=== PATIENT | male | born 1945 | race Hispanic/Latino ===

== ENCOUNTER 2017-05-09 16:07 | Inpatient (IN) | payer MEDICARE, MEDICAID ==
[2017-05-09 16:08] VITALS: BMI 25.0
[2017-05-09 17:02] VITALS: RESP 20
[2017-05-09 17:23] LABS: BASO % 0.6 % (0.0-2.0); EOS # 0.1 K/uL (0.0-0.7); EOS % 1.7 % (0.0-4.0); HEMOGLOBIN 13.3 g/dL (12.0-18.0); LYMPH # 1.4 K/uL (1.0-4.3); LYMPH % 25.7 % (20.0-40.0); MEAN CELL VOLUME 91.9 fL (80.0-94.0); MEAN CORPUSCULAR HEMOGLOBIN 31.9 pg (27.0-31.0); MEAN CORPUSCULAR HGB CONC 34.7 g/dL (33.0-37.0); MEAN PLATELET VOLUME 7.5 fL (7.2-11.7); MONO # 0.5 K/uL (0.0-0.8); MONO % 9.4 % (0.0-10.0); NEUT # 3.4 K/uL (1.8-7.0); NEUT % 62.6 % (50.0-75.0); NRBC % 0.1 % (0.0-2.0); RBC 4.19 Mil/uL (4.40-5.90); RED CELL DISTRIBUTION WIDTH 15.3 % (11.5-14.5); WHITE BLOOD COUNT 5.4 K/uL (4.8-10.8)
[2017-05-09 17:38] LABS: PROTHROMBIN TIME 11.2 SECONDS (9.7-12.2)
[2017-05-09 17:45] LABS: ALB/GLOB RATIO 1.2 (1.0-2.1); ALT/SGPT 13 U/L (21-72); AST/SGOT 21 U/L (17-59); BLOOD UREA NITROGEN 16 mg/dL (9-20); CALCIUM 8.8 mg/dl (8.6-10.4); GFR AFRICAN-AMERICAN > 60; GFR NON-AFRICAN AMERICAN > 60
[2017-05-09] MEDS ORDERED: Enoxaparin 100 mg Syringe SC STA (21:19)
--- NOTE | 2017-05-09 21:24 | C.PDOC ---
History Of Present Illness Pt was diagnosed with RLE DVT by his PMD today and sent to the ED for admission. Time Seen by Provider: 05/09/17 16:31 Chief Complaint (Nursing): Lower Extremity Problem/Injury History Per: Patient, Other (Note from PMD) Onset/Duration Of Symptoms: Days Current Symptoms Are (Timing): Worse Severity: Moderate Associated Symptoms: Leg/Calf Pain (right), Ankle/Leg Swelling (right) Reports Recently: Treated By A Physician Additional History Per: Prior Records Past Medical History Reviewed: Historical Data, Nursing Documentation, Vital Signs Vital Signs: Last Vital Signs Temp 97.9 F 05/09/17 16:50 Pulse 81 05/09/17 16:50 Resp 20 05/09/17 16:50 BP 117/74 05/09/17 16:50 Pulse Ox 95 05/09/17 16:50 - Medical History PMH: Atrial Fibrillation, Benign Prostatic Hyperplasia, Kidney Stones Surgical History: Appendectomy Family History: States: Unknown Family Hx - Social History Hx Tobacco Use: No Hx Alcohol Use: No Hx Substance Use: No - Immunization History Hx Tetanus Toxoid Vaccination: No Hx Influenza Vaccination: No Hx Pneumococcal Vaccination: No Review Of Systems Except As Marked, All Systems Reviewed And Found Negative. Constitutional: Negative for: Fever, Weakness Cardiovascular: Negative for: Chest Pain Respiratory: Negative for: Shortness of Breath, Hemoptysis Gastrointestinal: Negative for: Vomiting, Abdominal Pain Musculoskeletal: Positive for: Leg Pain (right). Negative for: Neck Pain, Back Pain Skin: Negative for: Rash Neurological: Negative for: Weakness, Numbness Physical Exam - Physical Exam Appears: Non-toxic, No Acute Distress Skin: Warm, Dry Head: Atraumatic, Normacephalic Eye(s): bilateral: PERRL, EOMI Neck: Normal ROM, Supple Cardiovascular: Rhythm Regular Respiratory: Normal Breath Sounds, No Accessory Muscle Use Gastrointestinal/Abdominal: Soft, No Tenderness Back: No CVA Tenderness, No Vertebral Tenderness Extremity: Normal ROM, Calf Tenderness (right), Swelling (RLE) Pulses: Right Dorsalis Pedis: Normal Neurological/Psych: Oriented x3, Normal Motor, Normal Sensation ED Course And Treatment - Laboratory Results Result Diagrams: 05/09/17 17:17 05/09/17 17:17 Lab Interpretation: No Acute Changes O2 Sat by Pulse Oximetry: 95 Pulse Ox Interpretation: Normal - Physician Consult Information Physician Contacted: Dionicio Skelton (Covering) Outcome Of Conversation: Did not call back after multiple attempts for several hours. Progress - Interventions Interventions:: Observation - Medications Administered Subcutaneous: other (Lovenox) - Data Reviewed Data Reviewed: Lab, Old records - Continuity of Care Discussed patient case with:: Patient, ED Nurse - Patient Plan Patient Plan: Admission Disposition Discussed With : Carlos Chang (On-call) Comment: He accepted pt on his service. Doctor Will See Patient In The: Hospital Counseled Patient/Family Regarding: Studies Performed, Diagnosis - Disposition Disposition: HOSPITALIZED Disposition Time: 21:25 Condition: FAIR - Clinical Impression Clinical Impression: Deep vein thrombosis (DVT) of right lower extremity
[2017-05-09] MEDS ORDERED: Oxycodone/Acetaminophen 5/325 mg Tab PO PRN (22:25)
[2017-05-10] MEDS: Enoxaparin 100 mg Syringe SC SCH ×2 (10:12→21:32)
[2017-05-11] MEDS: Enoxaparin 100 mg Syringe SC SCH ×2 (10:45→21:55)
[2017-05-11 16:15] VITALS: O2SAT 96
[2017-05-12 06:42] LABS: BASO % 0.6 % (0.0-2.0); EOS # 0.1 K/uL (0.0-0.7); EOS % 2.8 % (0.0-4.0); HEMOGLOBIN 13.8 g/dL (12.0-18.0); LYMPH # 1.4 K/uL (1.0-4.3); LYMPH % 26.9 % (20.0-40.0); MEAN CELL VOLUME 92.1 fL (80.0-94.0); MEAN CORPUSCULAR HGB CONC 34.8 g/dL (33.0-37.0); MEAN PLATELET VOLUME 7.5 fL (7.2-11.7); MONO # 0.6 K/uL (0.0-0.8); MONO % 10.8 % (0.0-10.0); NEUT # 3.1 K/uL (1.8-7.0); NEUT % 58.9 % (50.0-75.0); NRBC % 0.1 % (0.0-2.0); PROTHROMBIN TIME 11.5 SECONDS (9.7-12.2); RBC 4.32 Mil/uL (4.40-5.90); RED CELL DISTRIBUTION WIDTH 14.8 % (11.5-14.5); WHITE BLOOD COUNT 5.2 K/uL (4.8-10.8)
[2017-05-12 06:56] LABS: ALB/GLOB RATIO 1.1 (1.0-2.1); ALBUMIN 3.6 g/dL (3.5-5.0); ALT/SGPT 15 U/L (21-72); AST/SGOT 19 U/L (17-59); BLOOD UREA NITROGEN 14 mg/dL (9-20); CALCIUM 8.6 mg/dl (8.6-10.4); GFR AFRICAN-AMERICAN > 60; GFR NON-AFRICAN AMERICAN > 60; MAGNESIUM 1.7 mg/dL (1.6-2.3)
--- NOTE | 2017-05-12 07:46 | HP ---
HISTORY OF PRESENT ILLNESS: This is a 71-year-old male with history of cardiac arrhythmia, history of arthritis. Patient has history of knee replacement, currently swelling of the right leg after Tim, seen his primary care doctor and advised admission. Patient is a smoker. PHYSICAL EXAMINATION: GENERAL: Patient is awake, alert, oriented. VITAL SIGNS: Temperature 98, pulse 90. HEENT: Within normal limits. NECK: Supple. CHEST: Symmetrical. HEART: Regular. ABDOMEN: Soft. EXTREMITIES: Swelling in the right leg. There is scar from previous knee surgery. IMPRESSION: Patient suffers from deep venous thrombosis, extensive. PLAN: Patient is on Lovenox, supportive care. Carlos Chang MD
[2017-05-12 08:41] VITALS: BP 118/85; PULSE 66; TEMP 98.3
--- NOTE | 2017-05-12 09:01 | CARD ---
APPROVED REPORT EKG Measurement Heart [id number] CT [id number] [id number] <Conclusion> Normal sinus rhythm Left axis deviation Incomplete right bundle branch block Abnormal ECG
--- NOTE | 2017-05-12 09:14 | CP.PCM.PN ---
Subjective - Date & Time of Evaluation Date of Evaluation: 05/12/17 Time of Evaluation: 09:13 - Subjective Subjective: PGY-[address] Chang's Service: Pt seen and examined at bedside. Nursing reports no acute events overnight. Patient denies pain in his right lower extremity and states "the swelling has gone down a lot since I was admitted." He denies chest pain, palpitations, SOB, abd pain, N/V/D/C, and admits tolerating diet, voiding bowel/bladder without difficulty. ____ Patient is a 71 year old male, with PMHx of atrial fibrillation, knee replacement, BPH, nephrolithiasis, and arthritis, who presents to [facility] per instruction of PMD, Dr. Morgan, for evaluation of right lower extremity swelling and pain. Patient admits discomfort began on when he was at his PMD's office for pre-op workup for right elbow surgery. Patient denies recent surgery or prolonged immobility. He admits being on Eliquis in the past for his Afib, but was able to stop after his ablation. PMHx: atrial fibrillation (ablation performed), knee replacement, BPH, nephrolithiasis, and arthritis PSHx: appendectomy, ablation for afib Fam Hx: denies SHx: Tobacco 1 ppd x ~20+ yrs Objective - Vital Signs/Intake and Output Vital Signs (last 24 hours): Temp Pulse Resp BP Pulse Ox 98.3 F 66 20 118/85 96 05/12/17 08:40 05/12/17 08:40 05/12/17 08:40 05/12/17 08:40 05/12/17 08:40 Intake and Output: 05/12/17 05/12/17 06:59 18:59 Intake Total 500 Balance 500 - Medications Medications: Current Medications Enoxaparin Sodium (Lovenox) 100 mg SC Q12 KARISHMA Last Admin: 05/11/17 21:55 Dose: 100 mg Oxycodone/Acetaminophen (Percocet 5/325 Mg Tab) 1 tab PO Q4H PRN PRN Reason: Pain, moderate (4-7) Stop: 05/12/17 22:26 Pneumococcal Polyvalent Vaccine (Pneumovax 23 Vaccine) 0.5 ml IM .ONCE ONE Stop: 05/12/17 10:01 - Labs Labs: 05/12/17 06:27 05/12/17 06:27 PT 11.5 SECONDS (9.7-12.2) 05/12/17 06:27 INR 1.0 05/12/17 06:27 APTT 35 SECONDS (21-34) H D 05/12/17 06:27 - Constitutional Appears: Non-toxic, No Acute Distress - Head Exam Head Exam: ATRAUMATIC, NORMAL INSPECTION - Eye Exam Eye Exam: EOMI, Normal appearance - ENT Exam ENT Exam: Mucous Membranes Moist, Normal Exam - Neck Exam Neck Exam: absent: Tenderness - Respiratory Exam Respiratory Exam: Clear to Ausculation Bilateral, NORMAL BREATHING PATTERN. absent: Wheezes - Cardiovascular Exam Cardiovascular Exam: REGULAR RHYTHM, +S1, +S2 - GI/Abdominal Exam GI & Abdominal Exam: Soft, Normal Bowel Sounds. absent: Tenderness - Extremities Exam Extremities Exam: Pedal Edema (mild, non-pitting Right LE swelling). absent: Normal Inspection, Tenderness - Back Exam Back Exam: absent: CVA tenderness (L), CVA tenderness (R) - Neurological Exam Neurological Exam: Alert, Awake, Oriented x3 - Psychiatric Exam Psychiatric exam: Normal Affect, Normal Mood - Skin Skin Exam: Normal Color, Warm Assessment and Plan - Assessment and Plan (Free Text) Plan: DVT of right lower extremity Admit to Med/Surg VDL RLE (05/09/17): Partial acute DVT of right common femoral, popliteal, and posterior tibial veins (see full report) Lovenox 100mg SC Q12H Hx of Atrial fibrillation s/p ablation in 2014 EKG (05/09/17): NSR, 77 bpm, RBBB BPH Flomax 0.4mg PO Daily Prophylaxis Lovenox 100mg SC Q12H Protonix 40mg PO Daily Disposition: Pt to be discharged on NOAC (Eliquis), will follow up with Dr. Dorita Regalado PGY-2 All medical management per Dr. Chang
--- NOTE | 2017-05-12 09:49 | VASCLAB ---
PROCEDURE: Right Lower Extremity Venous Duplex Exam. HISTORY: Deep Vein Thrombosis PRIORS: 11/21/2011, normal. TECHNIQUE: Right common femoral, femoral, popliteal and posterior tibial, peroneal and great saphenous veins were evaluated. Flow was assessed with color Doppler, compressibility, assessment of phasic flow and augmentation response. Report prepared by ADELFO West FINDINGS: RIGHT: 1. Common Femoral Vein: 1.1. Compressibility - Partial: Thrombus - Acute: Flow - Reduced : Augmentation -Normal: Reflux - None. 2. Femoral Vein: 2.1. Compressibility - Partial: Thrombus - Acute: Flow - Phasic: Augmentation -Normal: Reflux - None. 3. Popliteal Vein: 3.1. Compressibility - Partial: Thrombus - Acute: Flow - Reduced : Augmentation -Normal: Reflux - Mild.2.55s 4. Posterior Tibial Vein: (one vein non compressible) 4.1. Compressibility - Incompressible: Thrombus - Acute: Flow - Reduced : Augmentation -None: Reflux - None. 5. Peroneal Vein: 5.1. Unable to visualize due to swelling. 6. Great Saphenous Vein: 6.1. Compressibility - Fully compressible: Thrombus -None: Flow - Phasic: Augmentation - Normal: Reflux - None. OTHER FINDINGS: Findings were reported by the medical technologist hematology, david Urban at 8:43 a.m. IMPRESSION: Partial acute deep vein thrombosis of the right common femoral, femoral, popliteal and posterior tibial veins. Comment: Normal venous flow noted in the LEFT common femoral vein.
[2017-05-12] MEDS: Enoxaparin 100 mg Syringe SC SCH (09:55)
[2017-05-12] MEDS: Pantoprazole 40 mg EC Tab PO SCH ×2 (09:58→10:00)
[2017-05-12] MEDS ORDERED: Influenza Vaccine 60 mcg/0.5 mL SYR (4YR UP) IM ONE (10:00)
[2017-05-12] MEDS ORDERED: Pneumococcal 23-Valent Vaccine IM ONE (10:00)
== END 2017-05-12 14:00 | disposition home or self-care (01) | DRG 301 ==
LOC: C.ER 16:07 → C.3T 21:26 → C.9E 21:26
PROVIDERS: ADMIT Internal Medicine Pulmonary Disease; ATTEND Internal Medicine Pulmonary Disease
DX: I82.411 Acute embolism and thrombosis of right femoral vein (principal); I82.431 Acute embolism and thrombosis of right popliteal vein; I82.441 Acute embolism and thrombosis of right tibial vein; I48.91 Unspecified atrial fibrillation; K21.9 Gastro-esophageal reflux disease without esophagitis; N40.0 Benign prostatic hyperplasia without lower urinary tract symptoms; F17.200 Nicotine dependence, unspecified, uncomplicated; M19.90 Unspecified osteoarthritis, unspecified site; Z96.651 Presence of right artificial knee joint; Z87.442 Personal history of urinary calculi

== ENCOUNTER 2017-06-09 08:39 | Inpatient (IN) | payer MEDICARE, MEDICAID ==
[2017-06-09 13:38] VITALS: BMI 52.3
[2017-06-09] MEDS ORDERED: Midazolam 2 MG/2 ML VIAL ONE ×3 (13:53→14:25)
[2017-06-09] MEDS ORDERED: Propofol 10 mg/ml Inj (20 ML) ONE (13:54)
[2017-06-09] MEDS ORDERED: Iodixanol 320 MG/ML 100 ML BOTTLE IV ONE (14:42)
--- NOTE | 2017-06-09 15:13 | PCM.SURG1 ---
Surgeon's Initial Post Op Note - Surgeon's Notes Surgeon: gaviota Therapeutic Riding Instructor: 0 Type of Anesthesia: IV Sedation Anesthesia Administered By: katie Pre-Operative Diagnosis: dvt right common femoral and exteral ilac vein. pulmonary embolism Operative Findings: filer deployed above iliac vein confluence(unable to pass higher). small amount of clot in right CFV. 10mm balloon with no cosmetic effect Post-Operative Diagnosis: same Operation Performed: option elite filter to ivc. venogram. angiojet thrombolysis if right common femoral and iliac vein. 10 mm balloon venoplasty to right SFV Specimen/Specimens Removed: 0 Estimated Blood Loss: EBL {In ML}: 25 Blood Products Given: N/A Drains Used: No Drains Post-Op Condition: Good Date of Surgery/Procedure: 06/09/17 Time of Surgery/Procedure: 15:16
[2017-06-09] MEDS ORDERED: Heparin25000 units/250ml 1/2NS 25,000 UNITS/250 ML BAG IV PRN ×2 (15:19→18:31)
[2017-06-09] MEDS ORDERED: HYDROmorphone 0.5 mg/0.5 ml ISec IVP PRN (15:25)
[2017-06-09] MEDS ORDERED: Nitroglycerin 2% Ointment Foilpak UD TOP SCH (18:00)
[2017-06-09] MEDS ORDERED: Heparin25000 units/250ml 1/2NS 25,000 UNITS/250 ML BAG IV ONE (18:56)
[2017-06-09] MEDS ORDERED: Nitroglycerin 50mg in D5W 50 MG/250 ML BOTTLE IV ONE (19:35)
[2017-06-09] MEDS ORDERED: Nitroglycerin 50mg in D5W 50 MG/250 ML BOTTLE IV SCH (20:15)
[2017-06-09 21:59] LABS: BASO % 0.3 % (0.0-2.0); EOS # 0.1 K/uL (0.0-0.7); EOS % 0.7 % (0.0-4.0); HEMOGLOBIN 14.3 g/dL (12.0-18.0); LYMPH # 0.8 K/uL (1.0-4.3); MEAN CELL VOLUME 92.2 fL (80.0-94.0); MEAN CORPUSCULAR HEMOGLOBIN 31.9 pg (27.0-31.0); MEAN CORPUSCULAR HGB CONC 34.6 g/dL (33.0-37.0); MEAN PLATELET VOLUME 7.2 fL (7.2-11.7); MONO # 0.7 K/uL (0.0-0.8); MONO % 8.1 % (0.0-10.0); NEUT # 7.1 K/uL (1.8-7.0); NEUT % 81.9 % (50.0-75.0); PLATELET COUNT 256 K/uL (130-400); RBC 4.47 Mil/uL (4.40-5.90); WHITE BLOOD COUNT 8.7 K/uL (4.8-10.8)
[2017-06-09 22:13] LABS: ALB/GLOB RATIO 1.1 (1.0-2.1); ALT/SGPT < 6 U/L (21-72); AST/SGOT 82 U/L (17-59); BLOOD UREA NITROGEN 18 mg/dL (9-20); GFR AFRICAN-AMERICAN > 60; GFR NON-AFRICAN AMERICAN 60
[2017-06-09 22:23] LABS: EOSINOPHIL 1 % (0-4); LYMPHOCYTE 6 % (20-40); MONOCYTE 5 % (0-10); NEUTROPHIL 88 % (50-75); PLATELET ESTIMATE NORMAL (NORMAL); TOTAL CELLS COUNTED 100
[2017-06-09 22:26] LABS: CK-MB 1.17 ng/mL (0.0-3.38)
[2017-06-09] MEDS ORDERED: Simethicone 80 mg Chewtab PO PRN (22:31)
--- NOTE | 2017-06-09 22:34 | CP.PCM.CON ---
History of Present Illness - History of Present Illness History of Present Illness: 71 M with h/o ureteric calculi, bph, h/o turp, arrhythmia, recent diagnosis of right common femoral dvt, pe on Jun 02, with swelling in right leg, on Eliquis was in hospital today for placement of ivc filter. Patient during OR had c/o bladder pain, bladder distention, hematuria, and related htn needing medications iv. Patient brought in to icu confirmed distention on exam, lindsey placed gave about 650ml of urine, blood tinge with initially some clots, single attempt by the nurse, without difficulty. Patient's symptoms and bp improved post catheterization. Reviewed CT done on 06/02/2017, enlarged irregular prostate noticed. PMH as above Home meds eliquis, tamsulosin Allergies NKDA Social Smokes cigars, denies alcohol or illicit drugs Family history not contributory Review of Systems - Review of Systems All systems: reviewed and no additional remarkable complaints except (HPI) Past Patient History - Infectious Disease Hx of Infectious Diseases: None - Past Medical History & Family History Past Medical History?: Yes - Past Social History Smoking Status: Light Smoker < 10 Cigarettes Daily Alcohol: None Home Situation {Lives}: With Family Domestic Violence: Negative - CARDIAC Hx Cardiac Disorders: Yes Hx Cardia Arrhythmia: Yes (atrial fib) Other/Comment: hx dvt - RENAL Hx Kidney Stones: Yes - GENITOURINARY/GYNECOLOGICAL Hx Genitourinary Disorders: Yes Hx Prostate Problems: Yes - SURGICAL HISTORY Hx Surgeries: Yes Hx Appendectomy: Yes Hx Joint Replacement: Yes (bilat knees) Hx Orthopedic Surgery: Yes (R elbow) Other/Comment: cardiac ablation - ANESTHESIA Hx Anesthesia: Yes Hx Anesthesia Reactions: No Has any member of the family had a problem w/ anesthesia?: No Meds Allergies/Adverse Reactions: Allergies Allergy/AdvReac Type Severity Reaction Status Date / Time No Known Allergies Allergy Verified 05/09/17 16:22 - Medications Medications: Current Medications Apixaban (Eliquis) 5 mg PO BID KARISHMA Heparin Sodium/Sodium Chloride (Heparin 14673 Units/250ml 1/2 Normal Saline) 25 ,000 units in 250 mls @ 17.554 mls/hr IV .[id number] PRN; Protocol; 18 UNITS/KG/HR PRN Reason: ADJUST RATE PER PROTOCOL Nitroglycerin/Dextrose (Nitroglycerin 50 Mg/250 Ml D5w) 50 mg in 250 mls @ 1.5 mls/hr IV .Q24H KARISHMA; 5 MCG/MIN PRN Reason: Protocol Nitroglycerin (Nitro-Bid 2% Oint) 1 ea TOP Q6 KARISHMA Tamsulosin HCl (Flomax) 0.4 mg PO DAILY KARISHMA Physical Exam - Additional Findings Additional findings: * HEENT LEMUEL * Neck Supple * Chest Clear * CVS s1s2 regular * PA soft post cath placement, * Ext no edema, has vanessa bandages, for compression b/l, DP palpable b/l * 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 * Skin normal turgor Results - Vital Signs Recent Vital Signs: Last Vital Signs Temp 97.8 F 06/09/17 09:31 Pulse 88 06/09/17 09:31 Resp 20 06/09/17 09:31 BP 118/77 06/09/17 09:31 Pulse Ox 95 06/09/17 09:31 - Labs Result Diagrams: 06/09/17 21:54 Labs: Laboratory Results - last 24 hr 06/09/17 21:54 WBC 8.7 D RBC 4.47 Hgb 14.3 Hct 41.3 MCV 92.2 MCH 31.9 H MCHC 34.6 RDW 15.0 H Plt Count 256 MPV 7.2 Neut % (Auto) 81.9 H Lymph % (Auto) 9.0 L Harris % (Auto) 8.1 Eos % (Auto) 0.7 Baso % (Auto) 0.3 Neut # (Auto) 7.1 H Lymph # (Auto) 0.8 L Harris # (Auto) 0.7 Eos # (Auto) 0.1 Baso # (Auto) 0.0 Assessment & Plan - Assessment and Plan (Free Text) Assessment: * In ICU s/p IVC filter placement, thrombolysis, venoplasty for DVT right common femoral, PE diagnosed on 06/02/2017 * HTN urgency likely form pain urinary retention, catecholenzyme release, from hematuria pos thrombolsysis * Enlarged irregular prostate on recent CT with unprovoked dvt, pe, will need eval * Tobacco abuse. Plan: * Lindsey inserted * control pain * temporary betablocker to control catecholeamine release * Echo * Urology consult * See orders for detail.
[2017-06-09] MEDS ORDERED: Metoprolol 1 mg/ml Inj IVP ONE (22:43)
--- NOTE | 2017-06-10 02:05 | OP ---
PROCEDURE DATE: 06/09/2017. PREOPERATIVE DIAGNOSES: Deep vein thrombosis, right common femoral vein, external iliac artery and pulmonary embolism. PROCEDURE CARRIED OUT: 1. Placement of Option ELITE filter via left femoral vein with C-arm fluoroscopy, micropuncture, and ultrasound-guided puncture. 2. Mechanical thrombolysis using the Zelante AngioJet via the right popliteal vein. SURGEON: John Rice Jr., MD REAL ESTATE LEGAL ASSISTANT: None. ANESTHESIOLOGIST: Dr. Fatima. ANESTHESIA: Local with sedation. INDICATIONS: A 71-year-old man with history of over an year ago of ablation procedure via the right groin who presents with DVT in the right leg, pulmonary embolism later seen on CAT scan. CAT scan and ultrasound demonstrated a clot involving the common femoral vein extending up into the external iliac vein. OPERATIVE FINDINGS: 1. The filter was inserted uneventfully via the left popliteal vein, although limitations of the size of the device, thus we are well above the confluence of the iliac veins but below the renal vein entrance. 2. The completion of pictures show that there is a resolution of thrombus which was poorly seen on a contrast study but appeared to have been treated, but there was a residual stenosis of approximately 50% in the superficial femoral vein. This was tied over to 10 mm balloon which was the largest balloon available, and this did not have much of a cosmetic difference before and after this procedure. PROCEDURE: The patient was given local anesthesia. Ultrasound guidance, the left popliteal vein was punctured and the wire advanced centrally and a filter deployed as expected. On the right side, again using ultrasound guidance we punctured the right popliteal vein, using micropuncture technique passed the guidewire up to the vena cava and then went through with 8 Urdu sheath and then the Zelante AngioJet device without the use of TPA and as much as we only barely saw the clot on this study, it clearly was gone at the end of the study. Residual stenosis from the superficial femoral vein was dilated without much effect. Catheter was then removed from behind the knee and pressure was applied. So the operation was carried out, placement of Option ELITE filter via left popliteal vein, mechanical thrombolysis of the common femoral and external iliac vein and balloon angioplasty of the superficial femoral vein. John Rice Jr., MD cc: .
[2017-06-10 06:42] LABS: BASO % 0.3 % (0.0-2.0); EOS % 0.6 % (0.0-4.0); LYMPH # 1.3 K/uL (1.0-4.3); LYMPH % 15.9 % (20.0-40.0); MEAN CELL VOLUME 91.7 fL (80.0-94.0); MEAN CORPUSCULAR HEMOGLOBIN 32.7 pg (27.0-31.0); MEAN CORPUSCULAR HGB CONC 35.6 g/dL (33.0-37.0); MEAN PLATELET VOLUME 7.5 fL (7.2-11.7); MONO # 0.8 K/uL (0.0-0.8); MONO % 10.5 % (0.0-10.0); NEUT # 5.8 K/uL (1.8-7.0); NEUT % 72.7 % (50.0-75.0); RBC 4.29 Mil/uL (4.40-5.90); RED CELL DISTRIBUTION WIDTH 14.8 % (11.5-14.5)
[2017-06-10 06:56] LABS: ALB/GLOB RATIO 1.2 (1.0-2.1); ALBUMIN 3.8 g/dL (3.5-5.0); ALT/SGPT 21 U/L (21-72); AST/SGOT 81 U/L (17-59); BLOOD UREA NITROGEN 20 mg/dL (9-20); CALCIUM 9.2 mg/dl (8.6-10.4); GFR AFRICAN-AMERICAN > 60; GFR NON-AFRICAN AMERICAN 55; MAGNESIUM 1.9 mg/dL (1.6-2.3)
[2017-06-10] MEDS: Sodium Chloride 0.9% 1,000 ML IV SCH ×5 (08:27→17:44)
[2017-06-10] MEDS ORDERED: Iohexol 240 (50 ml) PO ONE (11:00)
[2017-06-10 11:18] LABS: TROPONIN I 1.35 ng/mL (0.00-0.120)
--- NOTE | 2017-06-10 14:47 | RAD ---
HISTORY: hematuria COMPARISON: 09/15/2015 FINDINGS: BOWEL: Normal. No obstruction. No free air. BONES: Normal. OTHER FINDINGS: Kidneys and ureters: Obscured by overlying bowel gas. Non diagnostic assessment of kidneys ureters for renal calculus disease. No visible bladder calculi. Incidental finding: IVC filter. IMPRESSION: No significant or acute findings to account for/ related to the clinical presentation.
[2017-06-10] MEDS ORDERED: Iodixanol 320 MG/ML 100 ML BOTTLE IV ONE (15:06)
--- NOTE | 2017-06-10 16:32 | CT ---
PROCEDURE: CT Abdomen and Pelvis with oral and IV contrast. HISTORY: Hematuria COMPARISON: CT angio chest, abdomen, and pelvis performed 06/02/17 TECHNIQUE: Contiguous axial images of the abdomen and pelvis. Oral and IV contrast was administered. Coronal and Sagittal reformats generated and reviewed . Contrast dose: 100 cc Visipaque 320 Radiation dose: Total exam DLP = 1329.91 mGy-cm. This CT exam was performed using one or more of the following dose reduction techniques: Automated exposure control, adjustment of the mA and/or kV according to patient size, and/or use of iterative reconstruction technique. FINDINGS: LOWER THORAX: Mild bibasilar atelectasis. No visible pleural effusion or pneumothorax. Distal esophageal wall thickening/small hiatal hernia. LIVER: Unremarkable. GALLBLADDER AND BILE DUCTS: Mild gallbladder wall thickening/pericholecystic edema. No calcified gallstones identified. PANCREAS: Unremarkable. SPLEEN: Unremarkable. ADRENALS: Unremarkable. KIDNEYS AND URETERS: The kidneys enhance symmetrically. No hydronephrosis or obstructing renal calculus. BLADDER: Begum catheter within a decompressed urinary bladder. Urinary bladder contains air, presumably due to recent instrumentation. REPRODUCTIVE: Enlarged heterogeneous prostate gland measures approximately 6.2 x 6.3 cm and contains calcifications. APPENDIX: Not identified. No secondary signs of acute appendicitis identified. BOWEL: The stomach is nondistended. The bowel loops appear within normal limits of caliber without evidence of intestinal obstruction. PERITONEUM: No significant free fluid. No definite free air. LYMPH NODES: No bulky lymphadenopathy identified. VASCULATURE: IVC filter. Atherosclerotic calcifications. No aortic aneurysm. BONES: No acute osseous abnormality is detected. OTHER FINDINGS: None. IMPRESSION: Begum catheter within a decompressed urinary bladder. Urinary bladder contains air, presumably due to recent instrumentation. Correlate clinically including urinalysis. Enlarged heterogeneous prostate gland measures approximately 6.2 x 6.3 cm and contains calcifications. Mild gallbladder wall thickening/pericholecystic edema. No calcified gallstones identified. IVC filter. Distal esophageal wall thickening/hiatal hernia.
--- NOTE | 2017-06-10 17:51 | CP.PCM.PN ---
Subjective - Date & Time of Evaluation Date of Evaluation: 06/10/17 Time of Evaluation: 06:50 - Subjective Subjective: Vascular Surgery- Dr. Rice Pt Seen and examined at bedside this AM. No acute events overnight. Tolerated procedure well yesterday. legs wrapped. denies n/v/d cp/sob f/c Objective - Vital Signs/Intake and Output Vital Signs (last 24 hours): Temp Pulse Resp BP Pulse Ox 98.3 F 77 18 97/56 L 94 L 06/10/17 16:00 06/10/17 17:40 06/10/17 17:40 06/10/17 16:58 06/10/17 17:40 Intake and Output: 06/10/17 06/10/17 06:59 18:59 Intake Total 600 2090 Output Total 2525 880 Balance -1925 1210 - Medications Medications: Current Medications Apixaban (Eliquis) 5 mg PO BID [facility] Last Admin: 06/10/17 17:11 Dose: 5 mg Ceftriaxone Sodium 1 gm/ (Sodium Chloride) 100 mls @ 100 mls/hr IVPB Q24H [facility] Last Admin: 06/09/17 22:52 Dose: 100 mls/hr Sodium Chloride (Sodium Chloride 0.9%) 1,000 mls @ 100 mls/hr IV .Q10H [facility] Last Admin: 06/10/17 17:44 Dose: Not Given Sodium Chloride (Sodium Chloride 0.9%) 1,000 mls @ 100 mls/hr IV .Q10H [facility] Last Admin: 06/10/17 17:44 Dose: Not Given Simethicone (Mylicon Chew Tab) 80 mg PO Q8H PRN PRN Reason: GI distress Last Admin: 06/09/17 22:52 Dose: 80 mg Tamsulosin HCl (Flomax) 0.4 mg PO DAILY [facility] Last Admin: 06/10/17 09:10 Dose: 0.4 mg - Labs Labs: 06/10/17 06:30 06/10/17 06:28 - Constitutional Appears: Non-toxic, No Acute Distress - Eye Exam Eye Exam: EOMI. absent: Scleral icterus - ENT Exam ENT Exam: Mucous Membranes Moist - Respiratory Exam Respiratory Exam: NORMAL BREATHING PATTERN. absent: Accessory Muscle Use, Respiratory Distress - Cardiovascular Exam Cardiovascular Exam: Tachycardia, +S1, +S2. absent: Bradycardia - GI/Abdominal Exam GI & Abdominal Exam: Soft. absent: Distended, Firm, Guarding, Rigid, Tenderness - Extremities Exam Extremities Exam: absent: Calf Tenderness Additional comments: bilateral lower extremites wrapped. popliteal site on RLE C/D/I - Neurological Exam Neurological Exam: Alert, Awake, Oriented x3 Assessment and Plan - Assessment and Plan (Free Text) Assessment: 71M s/p filter to ivc. venogram. angiojet thrombolysis if right common femoral and iliac vein. 10 mm balloon venoplasty to right SFV POD#1 Plan: - lindsey D/Cd - void trail; if voids cleared for discharge - discussed w/ Dr. Rice surgical attending Brandan Loyd PGY1
--- NOTE | 2017-06-10 17:54 | CP.PCM.DIS ---
Provider - Provider Date of Admission: 06/09/17 15:26 Attending physician: John Rice Jr, MD Time Spent in preparation of Discharge (in minutes): 45 Hospital Course - Lab Results Lab Results: Most Recent Lab Values WBC 8.0 K/uL (4.8-10.8) 06/10/17 06:30 RBC 4.29 Mil/uL (4.40-5.90) L 06/10/17 06:30 Hgb 14.0 g/dL (12.0-18.0) 06/10/17 06:30 Hct 39.3 % (35.0-51.0) 06/10/17 06:30 MCV 91.7 fL (80.0-94.0) 06/10/17 06:30 MCH 32.7 pg (27.0-31.0) H 06/10/17 06:30 MCHC 35.6 g/dL (33.0-37.0) 06/10/17 06:30 RDW 14.8 % (11.5-14.5) H 06/10/17 06:30 Plt Count 248 K/uL (130-400) 06/10/17 06:30 MPV 7.5 fL (7.2-11.7) 06/10/17 06:30 Neut % (Auto) 72.7 % (50.0-75.0) 06/10/17 06:30 Lymph % (Auto) 15.9 % (20.0-40.0) L 06/10/17 06:30 [place] % (Auto) 10.5 % (0.0-10.0) H 06/10/17 06:30 Eos % (Auto) 0.6 % (0.0-4.0) 06/10/17 06:30 Baso % (Auto) 0.3 % (0.0-2.0) 06/10/17 06:30 Neut # (Auto) 5.8 K/uL (1.8-7.0) 06/10/17 06:30 Lymph # (Auto) 1.3 K/uL (1.0-4.3) 06/10/17 06:30 [place] # (Auto) 0.8 K/uL (0.0-0.8) 06/10/17 06:30 Eos # (Auto) 0.0 K/uL (0.0-0.7) 06/10/17 06:30 Baso # (Auto) 0.0 K/uL (0.0-0.2) 06/10/17 06:30 Neutrophils % (Manual) 88 % (50-75) H 06/09/17 21:54 Lymphocytes % (Manual) 6 % (20-40) L 06/09/17 21:54 Monocytes % (Manual) 5 % (0-10) 06/09/17 21:54 Eosinophils % (Manual) 1 % (0-4) 06/09/17 21:54 Platelet Estimate Normal (NORMAL) 06/09/17 21:54 RBC Morphology Normal 06/09/17 21:54 Sodium 134 mmol/L (132-148) 06/10/17 06:28 Potassium 4.0 mmol/L (3.6-5.2) 06/10/17 06:28 Chloride 102 mmol/L (98-107) 06/10/17 06:28 Carbon Dioxide 24 mmol/L (22-30) 06/10/17 06:28 Anion Gap 12 (10-20) 06/10/17 06:28 BUN 20 mg/dL (9-20) 06/10/17 06:28 Creatinine 1.3 mg/dL (0.8-1.5) 06/10/17 06:28 Est GFR ( Amer) > 60 06/10/17 06:28 Est GFR (Non-Af Amer) 55 06/10/17 06:28 Random Glucose 113 mg/dL (75-110) H 06/10/17 06:28 Calcium 9.2 mg/dl (8.6-10.4) 06/10/17 06:28 Phosphorus 3.7 mg/dL (2.5-4.5) 06/10/17 06:28 Magnesium 1.9 mg/dL (1.6-2.3) 06/10/17 06:28 Total Bilirubin 2.1 mg/dL (0.2-1.3) H 06/10/17 06:28 AST 81 U/L (17-59) H 06/10/17 06:28 ALT 21 U/L (21-72) D 06/10/17 06:28 Alkaline Phosphatase 81 U/L (38-126) 06/10/17 06:28 Total Creatine Kinase 95 U/L (55-170) 06/09/17 21:54 CK-MB (Mass) 1.17 ng/mL (0.0-3.38) 06/09/17 21:54 Troponin I 1.3500 ng/mL (0.00-0.120) H* 06/10/17 10:38 Total Protein 7.1 g/dL (6.3-8.3) 06/10/17 06:28 Albumin 3.8 g/dL (3.5-5.0) 06/10/17 06:28 Globulin 3.3 gm/dL (2.2-3.9) 06/10/17 06:28 Albumin/Globulin Ratio 1.2 (1.0-2.1) 06/10/17 06:28 Prostate Specific Ag 11.1 ng/mL (0.00-4.0) H 06/10/17 10:38 - Hospital Course Hospital Course: 71 M with h/o ureteric calculi, bph, h/o turp, arrhythmia, recent diagnosis of right common femoral dvt, pe on Jun 02, with swelling in right leg, on Eliquis was in hospitalfor placement of ivc filter. Patient was taken for filter to ivc. venogram. angiojet thrombolysis if right common femoral and iliac vein. 10 mm balloon venoplasty to right SFV during procedure pt c/o bladder pain, bladder distention, hematuria, and related htn needing medications iv. Patient brought in to icu confirmed distention on exam, lindsey placed gave about 650ml of urine, blood tinge with initially some clots, single attempt by the nurse, without difficulty. Patient's symptoms and bp improved post catheterization. Lindsey was discontinued and patient was discharged in stable condition. Continue to take anti-coagulation. no restrictions for ambulation Discharge Exam - Head Exam Head Exam: ATRAUMATIC - Eye Exam Eye Exam: EOMI. absent: Scleral icterus - ENT Exam ENT Exam: Mucous Membranes Moist - Respiratory Exam Respiratory Exam: NORMAL BREATHING PATTERN. absent: Accessory Muscle Use - Cardiovascular Exam Cardiovascular Exam: Tachycardia, +S1, +S2. absent: Bradycardia - GI/Abdominal Exam GI & Abdominal Exam: Soft. absent: Diminished Bowel Sounds, Distended, Firm, Guarding, Tenderness - Extremities Exam Additional comments: bilateral extremiteis wrapped popliteal site C/D/I - Neurological Exam Neurological exam: Alert, Oriented x3 - Psychiatric Exam Psychiatric exam: Normal Affect - Skin Skin Exam: Intact, Warm Discharge Plan - Follow Up Plan Condition: GOOD Disposition: HOME/ ROUTINE
--- NOTE | 2017-06-10 18:19 | CP.CCUPN ---
CCU Subjective - Physician Review Subjective (Free Text): 06/10/17 18:19 Patient seen and examined at bedside. Per nursing no acute events occurred overnight. Critical Care Time Spent (in minutes): 40 CCU Objective - Vital Signs / Intake & Output Vital Signs (Last 4 hours): Vital Signs Temp Pulse Resp BP Pulse Ox 06/10/17 18:00 77 21 94 L 06/10/17 17:59 78 19 110/68 94 L 06/10/17 17:50 81 20 94 L 06/10/17 17:40 77 18 94 L 06/10/17 17:30 79 18 94 L 06/10/17 17:20 81 21 97 06/10/17 17:10 80 94 L 06/10/17 17:00 77 94 L 06/10/17 16:58 75 97/56 L 95 06/10/17 16:50 77 94 L 06/10/17 16:40 78 93 L 06/10/17 16:30 78 93 L 06/10/17 16:20 78 93 L 06/10/17 16:10 78 93 L 06/10/17 16:00 98.3 F 81 19 95 06/10/17 15:59 81 21 112/71 94 L 06/10/17 15:50 79 18 96 06/10/17 15:40 83 23 94 L 06/10/17 15:36 79 18 06/10/17 15:10 85 94 L 06/10/17 15:00 84 21 95 06/10/17 14:58 84 20 103/63 95 06/10/17 14:50 84 20 95 06/10/17 14:40 84 20 94 L 06/10/17 14:30 86 20 94 L 06/10/17 14:20 87 20 94 L Intake and Output (Last 8hrs): Intake & Output 06/10/17 06/10/17 06/10/17 06:59 14:59 22:59 Intake Total 400 1550 640 Output Total 1875 655 225 Balance -1475 895 415 Weight 211 lb 12.8 oz Intake: Intake, IV Amount 100 650 400 left hand 100 650 400 Oral 300 900 240 Output: Urine 1875 655 225 Urethral (Lindsey) 1875 655 225 Urine, Voided 0 Other: # Bowel Movements 1 - Physical Exam Head: Positive for: Atraumatic, Normocephalic Pupils: Positive for: PERRL Extroacular Muscles: Positive for: EOMI Conjunctiva: Positive for: Normal Mouth: Positive for: Moist Mucous Membranes Neck: Positive for: Normal Range of Motion. Negative for: Meningeal Signs, JVD Respiratory/Chest: Positive for: Clear to Auscultation, Good Air Exchange Cardiovascular: Positive for: Regular Rate and Rhythm, Normal S1, S2 Abdomen: Positive for: Normal Bowel Sounds Upper Extremity: Positive for: Normal Inspection. Negative for: Edema Lower Extremity: Positive for: Normal Inspection. Negative for: Edema Skin: Positive for: Warm, Dry, Normal Color Other physical findings (Free Text): bilateral lower extremites wrapped. popliteal site on RLE C/D/I - Medications Active Medications: Active Medications Generic Name Dose Route Start Last Admin Trade Name Freq PRN Reason Stop Dose Admin Apixaban 5 mg 06/09/17 18:00 06/10/17 17:11 Eliquis PO 5 mg BID KARISHMA Administration Ceftriaxone Sodium 1 gm/ 100 mls @ 100 mls/hr 06/09/17 23:00 06/09/17 22:52 Sodium Chloride IVPB 100 mls/hr Q24H KARISHMA Administration Sodium Chloride 1,000 mls @ 100 mls/hr 06/10/17 07:45 06/10/17 17:44 Sodium Chloride 0.9% IV Not Given .Q10H KARISHMA Sodium Chloride 1,000 mls @ 100 mls/hr 06/10/17 08:00 06/10/17 17:44 Sodium Chloride 0.9% IV Not Given .Q10H KARISHMA Simethicone 80 mg 06/09/17 22:31 06/09/17 22:52 Mylicon Chew Tab PO 80 mg Q8H PRN Administration GI distress Tamsulosin HCl 0.4 mg 06/09/17 22:15 06/10/17 09:10 Flomax PO 0.4 mg DAILY KARISHMA Administration - Patient Studies Lab Studies: Lab Studies 06/10/17 06/10/17 06/10/17 Range/Units 10:38 06:30 06:28 WBC 8.0 (4.8-10.8) K/uL RBC 4.29 L (4.40-5.90) Mil/uL Hgb 14.0 (12.0-18.0) g/dL Hct 39.3 (35.0-51.0) % MCV 91.7 (80.0-94.0) fL MCH 32.7 H (27.0-31.0) pg MCHC 35.6 (33.0-37.0) g/dL RDW 14.8 H (11.5-14.5) % Plt Count 248 (130-400) K/uL MPV 7.5 (7.2-11.7) fL Neut % (Auto) 72.7 (50.0-75.0) % Lymph % (Auto) 15.9 L (20.0-40.0) % [place] % (Auto) 10.5 H (0.0-10.0) % Eos % (Auto) 0.6 (0.0-4.0) % Baso % (Auto) 0.3 (0.0-2.0) % Neut # (Auto) 5.8 (1.8-7.0) K/uL Lymph # (Auto) 1.3 (1.0-4.3) K/uL [place] # (Auto) 0.8 (0.0-0.8) K/uL Eos # (Auto) 0.0 (0.0-0.7) K/uL Baso # (Auto) 0.0 (0.0-0.2) K/uL Neutrophils % (Manual) (50-75) % Lymphocytes % (Manual) (20-40) % Monocytes % (Manual) (0-10) % Eosinophils % (Manual) (0-4) % Platelet Estimate (NORMAL) RBC Morphology Sodium 134 (132-148) mmol/L Potassium 4.0 (3.6-5.2) mmol/L Chloride 102 (98-107) mmol/L Carbon Dioxide 24 (22-30) mmol/L Anion Gap 12 (10-20) BUN 20 (9-20) mg/dL Creatinine 1.3 (0.8-1.5) mg/dL Est GFR ( Amer) > 60 Est GFR (Non-Af Amer) 55 Random Glucose 113 H (75-110) mg/dL Calcium 9.2 (8.6-10.4) mg/dl Phosphorus 3.7 (2.5-4.5) mg/dL Magnesium 1.9 (1.6-2.3) mg/dL Total Bilirubin 2.1 H (0.2-1.3) mg/dL AST 81 H (17-59) U/L ALT 21 D (21-72) U/L Alkaline Phosphatase 81 (38-126) U/L Total Creatine Kinase (55-170) U/L CK-MB (Mass) (0.0-3.38) ng/mL Troponin I 1.3500 H* 1.8600 H* (0.00-0.120) ng/mL Total Protein 7.1 (6.3-8.3) g/dL Albumin 3.8 (3.5-5.0) g/dL Globulin 3.3 (2.2-3.9) gm/dL Albumin/Globulin Ratio 1.2 (1.0-2.1) Prostate Specific Ag 11.1 H (0.00-4.0) ng/mL 06/09/17 06/09/17 Range/Units 21:54 21:54 WBC 8.7 D (4.8-10.8) K/uL RBC 4.47 (4.40-5.90) Mil/uL Hgb 14.3 (12.0-18.0) g/dL Hct 41.3 (35.0-51.0) % MCV 92.2 (80.0-94.0) fL MCH 31.9 H (27.0-31.0) pg MCHC 34.6 (33.0-37.0) g/dL RDW 15.0 H (11.5-14.5) % Plt Count 256 (130-400) K/uL MPV 7.2 (7.2-11.7) fL Neut % (Auto) 81.9 H (50.0-75.0) % Lymph % (Auto) 9.0 L (20.0-40.0) % [place] % (Auto) 8.1 (0.0-10.0) % Eos % (Auto) 0.7 (0.0-4.0) % Baso % (Auto) 0.3 (0.0-2.0) % Neut # (Auto) 7.1 H (1.8-7.0) K/uL Lymph # (Auto) 0.8 L (1.0-4.3) K/uL [place] # (Auto) 0.7 (0.0-0.8) K/uL Eos # (Auto) 0.1 (0.0-0.7) K/uL Baso # (Auto) 0.0 (0.0-0.2) K/uL Neutrophils % (Manual) 88 H (50-75) % Lymphocytes % (Manual) 6 L (20-40) % Monocytes % (Manual) 5 (0-10) % Eosinophils % (Manual) 1 (0-4) % Platelet Estimate Normal (NORMAL) RBC Morphology Normal Sodium 136 (132-148) mmol/L Potassium 3.9 (3.6-5.2) mmol/L Chloride 103 (98-107) mmol/L Carbon Dioxide 22 (22-30) mmol/L Anion Gap 15 (10-20) BUN 18 (9-20) mg/dL Creatinine 1.2 (0.8-1.5) mg/dL Est GFR ( Amer) > 60 Est GFR (Non-Af Amer) 60 Random Glucose 124 H (75-110) mg/dL Calcium 9.0 (8.6-10.4) mg/dl Phosphorus (2.5-4.5) mg/dL Magnesium (1.6-2.3) mg/dL Total Bilirubin 2.8 H (0.2-1.3) mg/dL AST 82 H D (17-59) U/L ALT < 6 L D (21-72) U/L Alkaline Phosphatase 70 (38-126) U/L Total Creatine Kinase 95 (55-170) U/L CK-MB (Mass) 1.17 (0.0-3.38) ng/mL Troponin I 0.1560 H* (0.00-0.120) ng/mL Total Protein 7.6 (6.3-8.3) g/dL Albumin 4.0 (3.5-5.0) g/dL Globulin 3.6 (2.2-3.9) gm/dL Albumin/Globulin Ratio 1.1 (1.0-2.1) Prostate Specific Ag (0.00-4.0) ng/mL Laboratory Results - last 24 hr 06/09/17 06/09/17 06/10/17 21:54 21:54 06:28 WBC 8.7 D RBC 4.47 Hgb 14.3 Hct 41.3 MCV 92.2 MCH 31.9 H MCHC 34.6 RDW 15.0 H Plt Count 256 MPV 7.2 Neut % (Auto) 81.9 H Lymph % (Auto) 9.0 L [place] % (Auto) 8.1 Eos % (Auto) 0.7 Baso % (Auto) 0.3 Neut # (Auto) 7.1 H Lymph # (Auto) 0.8 L [place] # (Auto) 0.7 Eos # (Auto) 0.1 Baso # (Auto) 0.0 Neutrophils % (Manual) 88 H Lymphocytes % (Manual) 6 L Monocytes % (Manual) 5 Eosinophils % (Manual) 1 Platelet Estimate Normal RBC Morphology Normal Sodium 136 134 Potassium 3.9 4.0 Chloride 103 102 Carbon Dioxide 22 24 Anion Gap 15 12 BUN 18 20 Creatinine 1.2 1.3 Est GFR ( Amer) > 60 > 60 Est GFR (Non-Af Amer) 60 55 Random Glucose 124 H 113 H Calcium 9.0 9.2 Phosphorus 3.7 Magnesium 1.9 Total Bilirubin 2.8 H 2.1 H AST 82 H D 81 H ALT < 6 L D 21 D Alkaline Phosphatase 70 81 Total Creatine Kinase 95 CK-MB (Mass) 1.17 Troponin I 0.1560 H* 1.8600 H* Total Protein 7.6 7.1 Albumin 4.0 3.8 Globulin 3.6 3.3 Albumin/Globulin Ratio 1.1 1.2 Prostate Specific Ag 06/10/17 06/10/17 06:30 10:38 WBC 8.0 RBC 4.29 L Hgb 14.0 Hct 39.3 MCV 91.7 MCH 32.7 H MCHC 35.6 RDW 14.8 H Plt Count 248 MPV 7.5 Neut % (Auto) 72.7 Lymph % (Auto) 15.9 L [place] % (Auto) 10.5 H Eos % (Auto) 0.6 Baso % (Auto) 0.3 Neut # (Auto) 5.8 Lymph # (Auto) 1.3 [place] # (Auto) 0.8 Eos # (Auto) 0.0 Baso # (Auto) 0.0 Neutrophils % (Manual) Lymphocytes % (Manual) Monocytes % (Manual) Eosinophils % (Manual) Platelet Estimate RBC Morphology Sodium Potassium Chloride Carbon Dioxide Anion Gap BUN Creatinine Est GFR ( Amer) Est GFR (Non-Af Amer) Random Glucose Calcium Phosphorus Magnesium Total Bilirubin AST ALT Alkaline Phosphatase Total Creatine Kinase CK-MB (Mass) Troponin I 1.3500 H* Total Protein Albumin Globulin Albumin/Globulin Ratio Prostate Specific Ag 11.1 H EKG/Cardiology Studies: Cardiology / EKG Studies 06/10/17 09:25 ELECTROCARDIOGRAM Stat Comment: Mode Of Transportation: Reason For Exam: baseline ekg; elevated trops Review of Systems - EENT Eyes: UNREMARKABLE Ears: UNREMARKABLE Nose/Mouth/Throat: UNREMARKABLE. absent: Nasal Trauma, Sinus Pressure, Dry Mouth, Tongue Swelling - Cardiovascular Cardiovascular: UNREMARKABLE. absent: Diaphoresis, Irregular Heart Rhythm, Palpitations - Respiratory Respiratory: UNREMARKABLE. absent: Dyspnea, Snoring, Pain on Inspiration, Change in Mucous Color - Gastrointestinal Gastrointestinal: UNREMARKABLE. absent: Belching, Dyspepsia, Fecal Incontinence - Musculoskeletal Musculoskeletal: UNREMARKABLE. absent: Arthralgias, Myalgias, Tingling - Integumentary Integumentary: UNREMARKABLE. absent: Bleeding Lesions, Change in Pigmentation, Lesions, Photosensitivity, Swelling - Neurological Neurological: UNREMARKABLE. absent: Confusion, Focal Weakness, Loss of Vision, Vertigo, Weakness - Psychiatric Psychiatric: UNREMARKABLE. absent: Behavioral Changes, Mood Swings, Panic Attacks - Endocrine Endocrine: UNREMARKABLE. absent: Polydipsia, Polyphagia, Polyuria Critical Care Progress Note - Nutrition Nutrition: Nutrition Category Date Time Status Regular Diet [DIET] Diets 06/09/17 Dinner Active Assessment/Plan - Assessment and Plan (Free Text) Assessment: 71M s/p filter to ivc,venogram, angiojet thrombolysis if right common femoral and iliac vein. 10 mm balloon venoplasty to right SFV POD#1 Plan: Neuro: pt awake and alert Cards: h/o DVT, PE on 06/02; arrhythmia, non-acute - s/p IVC filter placement, thrombolysis and venoplasty 06/09 - hydralazine 10 mg IVP once PRN - Eliquis 5 mg PO BID - Heparin 7800 U IV once PRN - rocephin 1 gm in NS @ 100 mls/hr IVPB Q24H - troponins downtrending 1.35 - Echo 06/09: report pending Pulm: no acute issues GI: discomfort/bloating - simethicone 80 mg PO Q8H Renal: no acute issues - BUN/Cr 20/1.3 : BPH, urinary retention, hematuria - surgery complicated by bladder distension, resolved with lindsey placement . Lindsey d/c'ed today. - Flomax 0.4 mg PO QD - NS @ 100 mls/hr IV Q10H - PSA high: 11.1 - Uro ([place]). Will f/u with rec's. Endo: no acute issues PPx: continue current anticoagulation
[2017-06-11] MEDS: Sodium Chloride 0.9% 1,000 ML IV SCH ×6 (03:45→23:45)
--- NOTE | 2017-06-11 10:36 | CP.PCM.CON ---
Addendum entered and electronically signed by Laura Tee DO 06/11/17 16:34: EKG showed evidence of Q waves. Original Note: <Laura Tee - Last Filed: 06/11/17 16:31> History of Present Illness - History of Present Illness History of Present Illness: Cardiology consult note for Dr. Walter: 71 M with h/o ureteric calculi, bph, h/o turp, arrhythmia, recent diagnosis of right common femoral DVT and PE on Jun 02, with swelling in right leg. He was recently placed on Eliquis. On 06/09 the patient had thrombloysis and IVC placement by Dr. Rice in the operating room. Patient tolerated wll but was having hematuria and urinary retention post procedure. He was sent to the ICU for monitoring post procedure. Troponin post procedure was noted to be elevated at 0.1560 (#2 1.860, #3 1.3500) now is trending down. Echo was ordered. Patient denies chest pain, palpitations, or shortness of breath. Patient sees Dr. Muñoz. Patient reports having a normal stress test about a year ago but is unsure of the results. PMH as above Home meds eliquis, tamsulosin Allergies NKDA Social Smokes cigars, denies alcohol or illicit drugs Family history not contributory Review of Systems - Constitutional Constitutional: absent: Chills, Fever - Cardiovascular Cardiovascular: absent: Chest Pain, Chest Pain at Rest, Palpitations, Syncope - Respiratory Respiratory: absent: Cough, Dyspnea, Dyspnea on Exertion - Gastrointestinal Gastrointestinal: absent: Abdominal Pain, Nausea, Vomiting Past Patient History - Infectious Disease Hx of Infectious Diseases: None - Past Medical History & Family History Past Medical History?: Yes - Past Social History Smoking Status: Light Smoker < 10 Cigarettes Daily Alcohol: None Home Situation {Lives}: With Family Domestic Violence: Negative - CARDIAC Hx Cardiac Disorders: Yes Hx Cardia Arrhythmia: Yes (atrial fib) Other/Comment: hx dvt - RENAL Hx Kidney Stones: Yes - GENITOURINARY/GYNECOLOGICAL Hx Genitourinary Disorders: Yes Hx Prostate Problems: Yes - SURGICAL HISTORY Hx Surgeries: Yes Hx Appendectomy: Yes Hx Joint Replacement: Yes (bilat knees) Hx Orthopedic Surgery: Yes (R elbow) Other/Comment: cardiac ablation - ANESTHESIA Hx Anesthesia: Yes Hx Anesthesia Reactions: No Has any member of the family had a problem w/ anesthesia?: No Meds Allergies/Adverse Reactions: Allergies Allergy/AdvReac Type Severity Reaction Status Date / Time No Known Allergies Allergy Verified 05/09/17 16:22 - Medications Medications: Current Medications Apixaban (Eliquis) 5 mg PO BID [facility] Last Admin: 06/11/17 10:01 Dose: 5 mg Ceftriaxone Sodium 1 gm/ (Sodium Chloride) 100 mls @ 100 mls/hr IVPB Q24H [facility] Last Admin: 06/10/17 22:20 Dose: 100 mls/hr Sodium Chloride (Sodium Chloride 0.9%) 1,000 mls @ 100 mls/hr IV .Q10H [facility] Last Admin: 06/11/17 03:45 Dose: 100 mls/hr Sodium Chloride (Sodium Chloride 0.9%) 1,000 mls @ 100 mls/hr IV .Q10H [facility] Last Admin: 06/11/17 06:04 Dose: Not Given Simethicone (Mylicon Chew Tab) 80 mg PO Q8H PRN PRN Reason: GI distress Last Admin: 06/09/17 22:52 Dose: 80 mg Tamsulosin HCl (Flomax) 0.4 mg PO DAILY [facility] Last Admin: 06/11/17 10:01 Dose: 0.4 mg Physical Exam - Constitutional Appears: Non-toxic, No Acute Distress - Head Exam Head Exam: ATRAUMATIC, NORMAL INSPECTION - Eye Exam Eye Exam: EOMI - ENT Exam ENT Exam: Mucous Membranes Moist - Respiratory Exam Respiratory Exam: Clear to Auscultation Bilateral, NORMAL BREATHING PATTERN. absent: Respiratory Distress - Cardiovascular Exam Cardiovascular Exam: REGULAR RHYTHM, +S1, +S2 - GI/Abdominal Exam GI & Abdominal Exam: Normal Bowel Sounds, Soft. absent: Distended, Firm, Guarding - Neurological Exam Neurological exam: Alert, CN II-XII Intact, Oriented x3 - Psychiatric Exam Psychiatric exam: Normal Affect, Normal Mood Results - Vital Signs Recent Vital Signs: Last Vital Signs Temp 98.3 F 06/11/17 08:00 Pulse 90 06/11/17 09:00 Resp 21 06/11/17 09:00 BP 107/72 06/11/17 08:58 Pulse Ox 94 L 06/11/17 09:00 - Labs Result Diagrams: 06/10/17 06:30 06/10/17 06:28 Labs: Laboratory Results - last 24 hr 06/10/17 10:38 Troponin I 1.3500 H* Prostate Specific Ag 11.1 H Assessment & Plan - Assessment and Plan (Free Text) Assessment: ACS Troponins are elevated but trending down Patient is asymptomatic at this time Will hold eliquis Start heparin drip per ACS protocol (without bolus) Plan for cardiac cath on Friday Discussed with Dr. Walter <Davy Walter - Last Filed: 06/11/17 22:55> Meds - Medications Medications: Current Medications Apixaban (Eliquis) 5 mg PO BID [facility] Last Admin: 06/11/17 10:01 Dose: 5 mg Ceftriaxone Sodium 1 gm/ (Sodium Chloride) 100 mls @ 100 mls/hr IVPB Q24H [facility] Last Admin: 06/10/17 22:20 Dose: 100 mls/hr Sodium Chloride (Sodium Chloride 0.9%) 1,000 mls @ 100 mls/hr IV .Q10H [facility] Last Admin: 06/11/17 17:47 Dose: 100 mls/hr Heparin Sodium/Sodium Chloride (Heparin 21746 Units/250ml 1/2 Normal Saline) 25 ,000 units in 250 mls @ 11.376 mls/hr IV .[id number] PRN; Protocol; 12 UNITS/KG/HR PRN Reason: PROTOCOL Last Admin: 06/11/17 17:49 Dose: 12 units/kg/hr, 11.376 mls/hr Simethicone (Mylicon Chew Tab) 80 mg PO Q8H PRN PRN Reason: GI distress Last Admin: 06/09/17 22:52 Dose: 80 mg Tamsulosin HCl (Flomax) 0.4 mg PO DAILY [facility] Last Admin: 06/11/17 10:01 Dose: 0.4 mg Results - Vital Signs Recent Vital Signs: Last Vital Signs Temp 97.8 F 06/11/17 20:00 Pulse 82 06/11/17 21:58 Resp 21 06/11/17 21:58 BP 135/92 H 06/11/17 21:59 Pulse Ox 98 06/11/17 20:00 - Labs Result Diagrams: 06/11/17 16:56 06/11/17 16:56 Labs: Laboratory Results - last 24 hr 06/10/17 06/11/17 06/11/17 10:38 16:01 16:56 WBC 5.1 RBC 4.07 L Hgb 12.9 Hct 37.6 MCV 92.4 MCH 31.7 H MCHC 34.3 RDW 14.9 H Plt Count 222 MPV 7.2 Neut % (Auto) 56.3 Lymph % (Auto) 27.1 [place] % (Auto) 12.4 H Eos % (Auto) 3.3 Baso % (Auto) 0.9 Neut # (Auto) 2.9 Lymph # (Auto) 1.4 [place] # (Auto) 0.6 Eos # (Auto) 0.2 Baso # (Auto) 0.0 PT INR APTT Sodium Potassium Chloride Carbon Dioxide Anion Gap BUN Creatinine Est GFR ( Amer) Est GFR (Non-Af Amer) Random Glucose Calcium Phosphorus Magnesium Total Bilirubin AST ALT Alkaline Phosphatase Troponin I 0.1380 H* Total Protein Albumin Globulin Albumin/Globulin Ratio Free PSA 2.8 % Free PSA Not calculated Total PSA 12.7 H 06/11/17 06/11/17 16:56 16:56 WBC RBC Hgb Hct MCV MCH MCHC RDW Plt Count MPV Neut % (Auto) Lymph % (Auto) [place] % (Auto) Eos % (Auto) Baso % (Auto) Neut # (Auto) Lymph # (Auto) [place] # (Auto) Eos # (Auto) Baso # (Auto) PT 13.0 H INR 1.2 APTT 31 Sodium 134 Potassium 4.0 Chloride 101 Carbon Dioxide 26 Anion Gap 11 BUN 16 Creatinine 1.0 Est GFR ( Amer) > 60 Est GFR (Non-Af Amer) > 60 Random Glucose 105 Calcium 8.0 L Phosphorus 3.7 Magnesium 2.0 Total Bilirubin 0.7 AST 24 ALT 23 Alkaline Phosphatase 73 Troponin I Total Protein 6.6 Albumin 3.5 Globulin 3.0 Albumin/Globulin Ratio 1.2 Free PSA % Free PSA Total PSA Assessment & Plan - Assessment and Plan (Free Text) Plan: Patient seen and evaluated Acute Coronary Syndrome with Elevated Troponin (1.86) Abnormal EKG (ST changes in aVR, V1 and V6) Recommend Cardiac cath Case d/w Dr. Muñoz (Primary senior investment analyst of the patient) He will continue the care from tomorrow Thank you
--- NOTE | 2017-06-11 12:24 | CP.CCUPN ---
<Lukas Rai - Last Filed: 06/11/17 12:19> CCU Subjective - Physician Review Subjective (Free Text): Patient seen and examined. Patient denies chest pain, palpitations, or shortness of breath. In stable condition - able to ambulate without difficulty. Waiting to be seen by cardiology before discharge. CCU Objective - Vital Signs / Intake & Output Vital Signs (Last 4 hours): Vital Signs Pulse Resp BP Pulse Ox 06/11/17 11:00 79 18 97 06/11/17 10:00 78 19 94 L 06/11/17 09:59 78 19 117/78 94 L 06/11/17 09:00 90 21 94 L 06/11/17 08:58 90 20 107/72 94 L Intake and Output (Last 8hrs): Intake & Output 06/10/17 06/11/17 06/11/17 22:59 06:59 14:59 Intake Total 1220 1020 820 Output Total 345 400 200 Balance 875 620 620 Weight 209 lb Intake: Intake, IV Amount 800 800 500 left hand 800 800 500 Oral 420 220 320 Output: Urine 345 400 200 Urethral (Lindsey) 225 Urine, Voided 120 400 200 Other: # Voids Urine, Voided 0 # Bowel Movements 0 - Physical Exam Head: Positive for: Atraumatic, Normocephalic Pupils: Positive for: PERRL Extroacular Muscles: Positive for: EOMI Conjunctiva: Positive for: Normal Mouth: Positive for: Moist Mucous Membranes Neck: Positive for: Normal Range of Motion. Negative for: Meningeal Signs, JVD Respiratory/Chest: Positive for: Clear to Auscultation, Good Air Exchange Cardiovascular: Positive for: Regular Rate and Rhythm, Normal S1, S2 Abdomen: Positive for: Normal Bowel Sounds Upper Extremity: Positive for: Normal Inspection. Negative for: Edema Lower Extremity: Positive for: Normal Inspection. Negative for: Edema Skin: Positive for: Warm, Dry, Normal Color - Medications Active Medications: Active Medications Generic Name Dose Route Start Last Admin Trade Name Freq PRN Reason Stop Dose Admin Apixaban 5 mg 06/09/17 18:00 06/11/17 10:01 Eliquis PO 5 mg BID AKRISHMA Administration Ceftriaxone Sodium 1 gm/ 100 mls @ 100 mls/hr 06/09/17 23:00 06/10/17 22:20 Sodium Chloride IVPB 100 mls/hr Q24H KARISHMA Administration Sodium Chloride 1,000 mls @ 100 mls/hr 06/10/17 07:45 06/11/17 03:45 Sodium Chloride 0.9% IV 100 mls/hr .Q10H KARISHMA Administration Sodium Chloride 1,000 mls @ 100 mls/hr 06/10/17 08:00 06/11/17 06:04 Sodium Chloride 0.9% IV Not Given .Q10H KARISHMA Simethicone 80 mg 06/09/17 22:31 06/09/17 22:52 Mylicon Chew Tab PO 80 mg Q8H PRN Administration GI distress Tamsulosin HCl 0.4 mg 06/09/17 22:15 06/11/17 10:01 Flomax PO 0.4 mg DAILY KARISHMA Administration Review of Systems - Review of Systems All systems: reviewed and no additional remarkable complaints except (as above) Critical Care Progress Note - Nutrition Nutrition: Nutrition Category Date Time Status Regular Diet [DIET] Diets 06/09/17 Dinner Active Assessment/Plan - Assessment and Plan (Free Text) Assessment: Neuro: pt awake and alert Cards: h/o DVT, PE on 06/02; arrhythmia, non-acute - s/p IVC filter placement, thrombolysis and venoplasty 06/09 - one time dose of hydralazine 10 mg IVP given - one time dose of Heparin 7800 U IV given - Eliquis 5 mg PO BID - rocephin 1 gm in NS @ 100 mls/hr IVPB Q24H - elevated troponins, downtrendin.35 from 1.86 - EKG reviewed - no ST changes - Echo 06/09: report pending - Surgery ([facility]) - Cardiology ([facility]) * Will wait cardiology to clear patient before discharge Pulm: no acute issues GI: discomfort/bloating - simethicone 80 mg PO Q8H Renal: no acute issues - BUN/Cr 20/1.3 : BPH, urinary retention, hematuria - surgery complicated by bladder distension, resolved with lindsey placement - 650ml output - lindsey removed 06/10 - Flomax 0.4 mg PO QD - NS @ 100 mls/hr - PSA high: 11.1 - Urine PTH: acute inflammatory cells, no malignant cells, microhematuria - Abd CT 06/10 showed enlarged, heterogeneous prostate - Uro ([place]) Endo: no acute issues PPx: already anticoagulated <Charbel Brooke - Last Filed: 06/11/17 18:11> CCU Objective - Vital Signs / Intake & Output Vital Signs (Last 4 hours): Vital Signs Temp Pulse Resp BP Pulse Ox 06/11/17 16:15 87 24 144/103 H 97 06/11/17 16:00 98.2 F 78 11 L 97 06/11/17 15:00 83 20 96 06/11/17 14:58 82 20 116/63 96 Intake and Output (Last 8hrs): Intake & Output 06/11/17 06/11/17 06/11/17 06:59 14:59 22:59 Intake Total 1020 1320 350 Output Total 400 350 120 Balance 620 970 230 Weight 209 lb Intake: Intake, IV Amount 800 800 200 left hand 800 800 200 Oral 220 520 150 Output: Urine 400 350 120 Urine, Voided 400 350 120 Other: # Voids Urine, Voided 1 1 # Bowel Movements 0 0 - Medications Active Medications: Active Medications Generic Name Dose Route Start Last Admin Trade Name Freq PRN Reason Stop Dose Admin Apixaban 5 mg 06/09/17 18:00 06/11/17 10:01 Eliquis PO 5 mg BID KARISHMA Administration Ceftriaxone Sodium 1 gm/ 100 mls @ 100 mls/hr 06/09/17 23:00 06/10/17 22:20 Sodium Chloride IVPB 100 mls/hr Q24H KARISHMA Administration Sodium Chloride 1,000 mls @ 100 mls/hr 06/10/17 07:45 06/11/17 17:47 Sodium Chloride 0.9% IV 100 mls/hr .Q10H KARISHMA Administration Heparin Sodium/Sodium Chloride 25,000 units in 250 mls @ 11.376 mls/hr 17:00 06/11/17 17:49 Heparin 42255 Units/250ml 1/2 Normal Saline IV 12 units/kg/hr .[id number] PRN 11.376 mls/hr PROTOCOL Administration Protocol 12 UNITS/KG/HR Simethicone 80 mg 06/09/17 22:31 06/09/17 22:52 Mylicon Chew Tab PO 80 mg Q8H PRN Administration GI distress Tamsulosin HCl 0.4 mg 06/09/17 22:15 06/11/17 10:01 Flomax PO 0.4 mg DAILY KARISHMA Administration - Patient Studies Lab Studies: Microbiology Studies 06/10/17 09:51 Urine Culture - Final Urine,Catheterized No Growth (<1,000 CFU/ML) 06/09/17 21:59 MRSA Culture (Admit) - Final Nose MRSA NOT DETECTED Lab Studies 06/11/17 06/11/17 06/11/17 Range/Units 16:56 16:56 16:01 WBC 5.1 (4.8-10.8) K/uL RBC 4.07 L (4.40-5.90) Mil/uL Hgb 12.9 (12.0-18.0) g/dL Hct 37.6 (35.0-51.0) % MCV 92.4 (80.0-94.0) fL MCH 31.7 H (27.0-31.0) pg MCHC 34.3 (33.0-37.0) g/dL RDW 14.9 H (11.5-14.5) % Plt Count 222 (130-400) K/uL MPV 7.2 (7.2-11.7) fL Neut % (Auto) 56.3 (50.0-75.0) % Lymph % (Auto) 27.1 (20.0-40.0) % [place] % (Auto) 12.4 H (0.0-10.0) % Eos % (Auto) 3.3 (0.0-4.0) % Baso % (Auto) 0.9 (0.0-2.0) % Neut # (Auto) 2.9 (1.8-7.0) K/uL Lymph # (Auto) 1.4 (1.0-4.3) K/uL [place] # (Auto) 0.6 (0.0-0.8) K/uL Eos # (Auto) 0.2 (0.0-0.7) K/uL Baso # (Auto) 0.0 (0.0-0.2) K/uL Sodium 134 (132-148) mmol/L Potassium 4.0 (3.6-5.2) mmol/L Chloride 101 (98-107) mmol/L Carbon Dioxide 26 (22-30) mmol/L Anion Gap 11 (10-20) BUN 16 (9-20) mg/dL Creatinine 1.0 (0.8-1.5) mg/dL Est GFR ( Amer) > 60 Est GFR (Non-Af Amer) > 60 Random Glucose 105 (75-110) mg/dL Calcium 8.0 L (8.6-10.4) mg/dl Phosphorus 3.7 (2.5-4.5) mg/dL Magnesium 2.0 (1.6-2.3) mg/dL Total Bilirubin 0.7 (0.2-1.3) mg/dL AST 24 (17-59) U/L ALT 23 (21-72) U/L Alkaline Phosphatase 73 (38-126) U/L Troponin I 0.1380 H* (0.00-0.120) ng/mL Total Protein 6.6 (6.3-8.3) g/dL Albumin 3.5 (3.5-5.0) g/dL Globulin 3.0 (2.2-3.9) gm/dL Albumin/Globulin Ratio 1.2 (1.0-2.1) Laboratory Results - last 24 hr 06/11/17 06/11/17 06/11/17 16:01 16:56 16:56 WBC 5.1 RBC 4.07 L Hgb 12.9 Hct 37.6 MCV 92.4 MCH 31.7 H MCHC 34.3 RDW 14.9 H Plt Count 222 MPV 7.2 Neut % (Auto) 56.3 Lymph % (Auto) 27.1 [place] % (Auto) 12.4 H Eos % (Auto) 3.3 Baso % (Auto) 0.9 Neut # (Auto) 2.9 Lymph # (Auto) 1.4 [place] # (Auto) 0.6 Eos # (Auto) 0.2 Baso # (Auto) 0.0 Sodium 134 Potassium 4.0 Chloride 101 Carbon Dioxide 26 Anion Gap 11 BUN 16 Creatinine 1.0 Est GFR ( Amer) > 60 Est GFR (Non-Af Amer) > 60 Random Glucose 105 Calcium 8.0 L Phosphorus 3.7 Magnesium 2.0 Total Bilirubin 0.7 AST 24 ALT 23 Alkaline Phosphatase 73 Troponin I 0.1380 H* Total Protein 6.6 Albumin 3.5 Globulin 3.0 Albumin/Globulin Ratio 1.2 Critical Care Progress Note - Nutrition Nutrition: Nutrition Category Date Time Status Regular Diet [DIET] Diets 06/09/17 Dinner Active Attending/Attestation - Attestation I have personally seen and examined this patient.: Yes I have fully participated in the care of the patient.: Yes I have reviewed all pertinent clinical information: Yes Notes (Text): 06/11/17 18:11 patient seen and examined in the intensive care unit. s/p IVC filter placement, thrombolysis and venoplasty 06/09 Cardiology evaluation for elevated cardiac enzymes Continue anticoagulation
--- NOTE | 2017-06-11 15:59 | CP.PCM.PN ---
Subjective - Date & Time of Evaluation Date of Evaluation: 06/11/17 Time of Evaluation: 10:30 - Subjective Subjective: Vascular Surgery- Dr. Rice Patient seen and examined at bedside this AM. No acute events overnight. Pt voided. trops elevated, cardiology consulted. Patient denies current chest pain , shortness of breath, nausea, vomiting, diarrhea. +OOB into chair Objective - Vital Signs/Intake and Output Vital Signs (last 24 hours): Temp Pulse Resp BP Pulse Ox 98.3 F 83 20 116/63 96 06/11/17 12:00 06/11/17 15:00 06/11/17 15:00 06/11/17 14:58 06/11/17 15:00 Intake and Output: 06/11/17 06/11/17 06:59 18:59 Intake Total 1600 920 Output Total 520 200 Balance 1080 720 - Medications Medications: Current Medications Apixaban (Eliquis) 5 mg PO BID [facility] Last Admin: 06/11/17 10:01 Dose: 5 mg Ceftriaxone Sodium 1 gm/ (Sodium Chloride) 100 mls @ 100 mls/hr IVPB Q24H [facility] Last Admin: 06/10/17 22:20 Dose: 100 mls/hr Sodium Chloride (Sodium Chloride 0.9%) 1,000 mls @ 100 mls/hr IV .Q10H [facility] Last Admin: 06/11/17 15:49 Dose: Not Given Simethicone (Mylicon Chew Tab) 80 mg PO Q8H PRN PRN Reason: GI distress Last Admin: 06/09/17 22:52 Dose: 80 mg Tamsulosin HCl (Flomax) 0.4 mg PO DAILY [facility] Last Admin: 06/11/17 10:01 Dose: 0.4 mg - Labs Labs: 06/10/17 06:30 06/10/17 06:28 - Constitutional Appears: Non-toxic, No Acute Distress - Head Exam Head Exam: ATRAUMATIC - Eye Exam Eye Exam: EOMI. absent: Scleral icterus - Respiratory Exam Respiratory Exam: NORMAL BREATHING PATTERN. absent: Accessory Muscle Use, Respiratory Distress - Cardiovascular Exam Cardiovascular Exam: Tachycardia, +S1, +S2. absent: Bradycardia - GI/Abdominal Exam GI & Abdominal Exam: Soft. absent: Distended, Guarding, Rigid, Tenderness - Extremities Exam Additional comments: Popliteal dressing C/D/I bilateral compression dressing - Neurological Exam Neurological Exam: Alert, Awake, Oriented x3 - Skin Skin Exam: Intact, Warm Assessment and Plan - Assessment and Plan (Free Text) Assessment: 71M s/p filter to ivc. venogram. angiojet thrombolysis if right common femoral and iliac vein. POD#2; elevated trops Plan: - cardiology consulted for elevated trops; all recs appreciated - pain control PRN - OOB to chair - monitor dressing - discussed w/ Dr. Rice surgical attending Brandan Loyd PGY1
[2017-06-11 17:04] LABS: BASO % 0.9 % (0.0-2.0); EOS # 0.2 K/uL (0.0-0.7); EOS % 3.3 % (0.0-4.0); HEMOGLOBIN 12.9 g/dL (12.0-18.0); LYMPH # 1.4 K/uL (1.0-4.3); LYMPH % 27.1 % (20.0-40.0); MEAN CELL VOLUME 92.4 fL (80.0-94.0); MEAN CORPUSCULAR HEMOGLOBIN 31.7 pg (27.0-31.0); MEAN CORPUSCULAR HGB CONC 34.3 g/dL (33.0-37.0); MEAN PLATELET VOLUME 7.2 fL (7.2-11.7); MONO # 0.6 K/uL (0.0-0.8); MONO % 12.4 % (0.0-10.0); NEUT # 2.9 K/uL (1.8-7.0); NEUT % 56.3 % (50.0-75.0); RBC 4.07 Mil/uL (4.40-5.90); RED CELL DISTRIBUTION WIDTH 14.9 % (11.5-14.5); WHITE BLOOD COUNT 5.1 K/uL (4.8-10.8)
[2017-06-11 17:14] LABS: ALB/GLOB RATIO 1.2 (1.0-2.1); ALBUMIN 3.5 g/dL (3.5-5.0); ALT/SGPT 23 U/L (21-72); AST/SGOT 24 U/L (17-59); BLOOD UREA NITROGEN 16 mg/dL (9-20); GFR AFRICAN-AMERICAN > 60; GFR NON-AFRICAN AMERICAN > 60
[2017-06-11] MEDS: Heparin25000 units/250ml 1/2NS 25,000 UNITS/250 ML BAG IV PRN (17:49)
[2017-06-11 18:10] LABS: INR 1.2
--- NOTE | 2017-06-11 21:15 | CARD ---
APPROVED REPORT EXAM: Two-dimensional and M-mode echocardiogram with Doppler and color Doppler. Other Information Quality : GoodRhythm : INDICATION RECENT PE, ELEVATION TROP RISK FACTORS Hypertension 2D DIMENSIONS IVSd0.8 (0.7-1.1cm)LVDd5.3 (3.9-5.9cm) PWd0.9 (0.7-1.1cm)LVDs3.9 (2.5-4.0cm) FS (%) 26.2 %LVEF (%)51.0 (>50%) M-Mode DIMENSIONS Left Atrium (MM)3.45 (2.5-4.0cm)Aortic Root4.02 (2.2-3.7cm) Aortic Cusp Exc.2.57 (1.5-2.0cm) Mitral Valve MV E Cduccnra43.3cm/sMV A Olafgspn86.1cm/sE/A ratio1.3 TDI E/Lateral E'0.0E/Medial E'0.0 Tricuspid Valve TR Peak Tbharopq689sx/sTR Peak Gr.[id number] LEFT VENTRICLE The left ventricle is normal size. There is normal left ventricular wall thickness. Left ventricle systolic function is normal. The Ejection Fraction is 50-55%. There is normal LV segmental wall motion. The left ventricular diastolic function is normal. RIGHT VENTRICLE The right ventricle is normal size. There is normal right ventricular wall thickness. The right ventricular systolic function is normal. ATRIA The left atrium size is normal. The right atrium size is normal. The interatrial septum is intact with no evidence for an atrial septal defect. AORTIC VALVE The aortic valve is normal in structure. No aortic regurgitation is present. There is no aortic valvular stenosis. There is no aortic valvular vegetation. MITRAL VALVE The mitral valve is normal in structure. There is no evidence of mitral valve prolapse. There is no mitral valve stenosis. Mitral regurgitation is mild. TRICUSPID VALVE The tricuspid valve is normal in structure. There is mild tricuspid regurgitation. Right ventricular systolic pressure is estimated at 30-40 mmHg. There is mild pulmonary hypertension. PULMONIC VALVE The pulmonic valve is not well visualized. There is no pulmonic valvular regurgitation. GREAT VESSELS The aortic root is normal in size. PERICARDIAL EFFUSION There is no significant pericardial effusion. <Conclusion> Left ventricle systolic function is normal. The Ejection Fraction is 50-55%. No aortic regurgitation is present. Mitral regurgitation is mild. There is mild tricuspid regurgitation. There is mild pulmonary hypertension. There is no pulmonic valvular regurgitation.
[2017-06-11 21:42] LABS: TOTAL PSA 12.7 ng/mL (< or = 4.0)
--- NOTE | 2017-06-11 22:37 | CP.PCM.CON ---
Past Patient History - Infectious Disease Hx of Infectious Diseases: None - Past Medical History & Family History Past Medical History?: Yes - Past Social History Smoking Status: Light Smoker < 10 Cigarettes Daily Alcohol: None Home Situation {Lives}: With Family Domestic Violence: Negative - CARDIAC Hx Cardiac Disorders: Yes Hx Cardia Arrhythmia: Yes (atrial fib) Other/Comment: hx dvt - RENAL Hx Kidney Stones: Yes - GENITOURINARY/GYNECOLOGICAL Hx Genitourinary Disorders: Yes Hx Prostate Problems: Yes - SURGICAL HISTORY Hx Surgeries: Yes Hx Appendectomy: Yes Hx Joint Replacement: Yes (bilat knees) Hx Orthopedic Surgery: Yes (R elbow) Other/Comment: cardiac ablation - ANESTHESIA Hx Anesthesia: Yes Hx Anesthesia Reactions: No Has any member of the family had a problem w/ anesthesia?: No Meds Allergies/Adverse Reactions: Allergies Allergy/AdvReac Type Severity Reaction Status Date / Time No Known Allergies Allergy Verified 05/09/17 16:22 - Medications Medications: Current Medications Apixaban (Eliquis) 5 mg PO BID [facility] Last Admin: 06/11/17 10:01 Dose: 5 mg Ceftriaxone Sodium 1 gm/ (Sodium Chloride) 100 mls @ 100 mls/hr IVPB Q24H [facility] Last Admin: 06/10/17 22:20 Dose: 100 mls/hr Sodium Chloride (Sodium Chloride 0.9%) 1,000 mls @ 100 mls/hr IV .Q10H [facility] Last Admin: 06/11/17 17:47 Dose: 100 mls/hr Heparin Sodium/Sodium Chloride (Heparin 75027 Units/250ml 1/2 Normal Saline) 25 ,000 units in 250 mls @ 11.376 mls/hr IV .[id number] PRN; Protocol; 12 UNITS/KG/HR PRN Reason: PROTOCOL Last Admin: 06/11/17 17:49 Dose: 12 units/kg/hr, 11.376 mls/hr Simethicone (Mylicon Chew Tab) 80 mg PO Q8H PRN PRN Reason: GI distress Last Admin: 06/09/17 22:52 Dose: 80 mg Tamsulosin HCl (Flomax) 0.4 mg PO DAILY [facility] Last Admin: 06/11/17 10:01 Dose: 0.4 mg Results - Vital Signs Recent Vital Signs: Last Vital Signs Temp 97.8 F 06/11/17 20:00 Pulse 82 06/11/17 21:58 Resp 21 06/11/17 21:58 BP 135/92 H 06/11/17 21:59 Pulse Ox 98 06/11/17 20:00 - Labs Result Diagrams: 06/11/17 16:56 06/11/17 16:56 Labs: Laboratory Results - last 24 hr 06/10/17 06/11/17 06/11/17 10:38 16:01 16:56 WBC 5.1 RBC 4.07 L Hgb 12.9 Hct 37.6 MCV 92.4 MCH 31.7 H MCHC 34.3 RDW 14.9 H Plt Count 222 MPV 7.2 Neut % (Auto) 56.3 Lymph % (Auto) 27.1 [place] % (Auto) 12.4 H Eos % (Auto) 3.3 Baso % (Auto) 0.9 Neut # (Auto) 2.9 Lymph # (Auto) 1.4 [place] # (Auto) 0.6 Eos # (Auto) 0.2 Baso # (Auto) 0.0 PT INR APTT Sodium Potassium Chloride Carbon Dioxide Anion Gap BUN Creatinine Est GFR ( Amer) Est GFR (Non-Af Amer) Random Glucose Calcium Phosphorus Magnesium Total Bilirubin AST ALT Alkaline Phosphatase Troponin I 0.1380 H* Total Protein Albumin Globulin Albumin/Globulin Ratio Free PSA 2.8 % Free PSA Not calculated Total PSA 12.7 H 06/11/17 06/11/17 16:56 16:56 WBC RBC Hgb Hct MCV MCH MCHC RDW Plt Count MPV Neut % (Auto) Lymph % (Auto) [place] % (Auto) Eos % (Auto) Baso % (Auto) Neut # (Auto) Lymph # (Auto) [place] # (Auto) Eos # (Auto) Baso # (Auto) PT 13.0 H INR 1.2 APTT 31 Sodium 134 Potassium 4.0 Chloride 101 Carbon Dioxide 26 Anion Gap 11 BUN 16 Creatinine 1.0 Est GFR ( Amer) > 60 Est GFR (Non-Af Amer) > 60 Random Glucose 105 Calcium 8.0 L Phosphorus 3.7 Magnesium 2.0 Total Bilirubin 0.7 AST 24 ALT 23 Alkaline Phosphatase 73 Troponin I Total Protein 6.6 Albumin 3.5 Globulin 3.0 Albumin/Globulin Ratio 1.2 Free PSA % Free PSA Total PSA Assessment & Plan - Assessment and Plan (Free Text) Assessment: Imp: Hematuria, now resolved Hx of urolithiasis Hx of enlarged prostate Elevated PSA s/p vascular surgery Full note t/f - Date & Time Date: 06/11/17 Time: 10:45
[2017-06-12 07:30] LABS: ALB/GLOB RATIO 1.1 (1.0-2.1); ALBUMIN 3.2 g/dL (3.5-5.0); ALT/SGPT 20 U/L (21-72); AST/SGOT 22 U/L (17-59); BLOOD UREA NITROGEN 13 mg/dL (9-20); CALCIUM 8.2 mg/dl (8.6-10.4); GFR AFRICAN-AMERICAN > 60; GFR NON-AFRICAN AMERICAN > 60; MAGNESIUM 1.9 mg/dL (1.6-2.3)
[2017-06-12 07:34] LABS: BASO % 0.8 % (0.0-2.0); EOS # 0.2 K/uL (0.0-0.7); EOS % 4.2 % (0.0-4.0); HEMOGLOBIN 12.4 g/dL (12.0-18.0); LYMPH # 1.1 K/uL (1.0-4.3); LYMPH % 23.3 % (20.0-40.0); MEAN CELL VOLUME 92.4 fL (80.0-94.0); MEAN CORPUSCULAR HEMOGLOBIN 31.8 pg (27.0-31.0); MEAN CORPUSCULAR HGB CONC 34.4 g/dL (33.0-37.0); MEAN PLATELET VOLUME 7.2 fL (7.2-11.7); MONO # 0.6 K/uL (0.0-0.8); MONO % 12.3 % (0.0-10.0); NEUT # 2.9 K/uL (1.8-7.0); NEUT % 59.4 % (50.0-75.0); RBC 3.9 Mil/uL (4.40-5.90); RED CELL DISTRIBUTION WIDTH 14.8 % (11.5-14.5); WHITE BLOOD COUNT 4.9 K/uL (4.8-10.8)
--- NOTE | 2017-06-12 09:33 | CP.PCM.CON ---
History of Present Illness - History of Present Illness History of Present Illness: The patient is a 71 year old man with a recent pulmonary embolism. Pt has had right knee replacement In the past, and presented with swellin of right knee may 12, 2017: an US of the leg was pos for dvt (in femoral vein) and pt was given eliquis. he underwent a ct of the chest 06/02/2017 revealing a pulmonary embolism. pt then had a ivc filter placed and thrombolysis of the thrombus by Dr meek. Pt has had a turp, and post procedure had some urinary retention, which resolved. Dr machado was on consult. Pt had a normal ecg, no chest pain, but cardiac isoenzymes were drawn a max TNI was 1.8. Echo revealed normal LV EF. RV not enlarged. Pt has a h/o atrial fibrillation, and in 2014, underwent ablation. He may have had a work up for cad at that time including cath (cannot access at this moment). A stress test outpatient done elsewhere was allegedly normal in 2017. A cardiac cath has been planned. Review of Systems - Review of Systems All systems: reviewed and no additional remarkable complaints except (as above) Past Patient History - Infectious Disease Hx of Infectious Diseases: None - Past Medical History & Family History Past Medical History?: Yes - Past Social History Smoking Status: Light Smoker < 10 Cigarettes Daily Alcohol: None Home Situation {Lives}: With Family Domestic Violence: Negative - CARDIAC Hx Cardiac Disorders: Yes Hx Cardia Arrhythmia: Yes (atrial fib) Other/Comment: hx dvt - RENAL Hx Kidney Stones: Yes - GENITOURINARY/GYNECOLOGICAL Hx Genitourinary Disorders: Yes Hx Prostate Problems: Yes - SURGICAL HISTORY Hx Surgeries: Yes Hx Appendectomy: Yes Hx Joint Replacement: Yes (bilat knees) Hx Orthopedic Surgery: Yes (R elbow) Other/Comment: cardiac ablation - ANESTHESIA Hx Anesthesia: Yes Hx Anesthesia Reactions: No Has any member of the family had a problem w/ anesthesia?: No Meds Allergies/Adverse Reactions: Allergies Allergy/AdvReac Type Severity Reaction Status Date / Time No Known Allergies Allergy Verified 05/09/17 16:22 - Medications Medications: Current Medications Apixaban (Eliquis) 5 mg PO BID [facility] Last Admin: 06/11/17 10:01 Dose: 5 mg Ceftriaxone Sodium 1 gm/ (Sodium Chloride) 100 mls @ 100 mls/hr IVPB Q24H [facility] Last Admin: 06/11/17 22:58 Dose: 100 mls/hr Sodium Chloride (Sodium Chloride 0.9%) 1,000 mls @ 100 mls/hr IV .Q10H KARISHMA Last Admin: 06/11/17 23:45 Dose: 100 mls/hr Heparin Sodium/Sodium Chloride (Heparin 45541 Units/250ml 1/2 Normal Saline) 25 ,000 units in 250 mls @ 11.376 mls/hr IV .[id number] PRN; Protocol; 12 UNITS/KG/HR PRN Reason: PROTOCOL Last Titration: 06/12/17 01:03 Dose: 14 units/kg/hr, 13.272 mls/hr Simethicone (Mylicon Chew Tab) 80 mg PO Q8H PRN PRN Reason: GI distress Last Admin: 06/09/17 22:52 Dose: 80 mg Tamsulosin HCl (Flomax) 0.4 mg PO DAILY [facility] Last Admin: 06/12/17 09:14 Dose: 0.4 mg Physical Exam - Constitutional Appears: Well - Head Exam Head Exam: ATRAUMATIC - Eye Exam Eye Exam: EOMI - ENT Exam ENT Exam: Mucous Membranes Moist - Respiratory Exam Respiratory Exam: Clear to Auscultation Bilateral - Cardiovascular Exam Cardiovascular Exam: REGULAR RHYTHM - GI/Abdominal Exam GI & Abdominal Exam: Normal Bowel Sounds - Exam External exam: NORMAL EXTERNAL EXAM - Extremities Exam Extremities exam: Positive for: normal inspection - Back Exam Back exam: NORMAL INSPECTION - Neurological Exam Neurological exam: Alert, Normal Gait, Oriented x3 - Skin Skin Exam: Normal Color Results - Vital Signs Recent Vital Signs: Last Vital Signs Temp 98.1 F 06/12/17 08:00 Pulse 87 06/12/17 09:00 Resp 12 06/12/17 09:00 BP 128/92 H 06/12/17 08:59 Pulse Ox 95 06/12/17 09:00 - Labs Result Diagrams: 06/12/17 07:04 06/12/17 07:04 Labs: Laboratory Results - last 24 hr 06/10/17 06/11/17 06/11/17 10:38 16:01 16:56 WBC 5.1 RBC 4.07 L Hgb 12.9 Hct 37.6 MCV 92.4 MCH 31.7 H MCHC 34.3 RDW 14.9 H Plt Count 222 MPV 7.2 Neut % (Auto) 56.3 Lymph % (Auto) 27.1 [place] % (Auto) 12.4 H Eos % (Auto) 3.3 Baso % (Auto) 0.9 Neut # (Auto) 2.9 Lymph # (Auto) 1.4 [place] # (Auto) 0.6 Eos # (Auto) 0.2 Baso # (Auto) 0.0 PT INR APTT Sodium Potassium Chloride Carbon Dioxide Anion Gap BUN Creatinine Est GFR ( Amer) Est GFR (Non-Af Amer) Random Glucose Calcium Phosphorus Magnesium Total Bilirubin AST ALT Alkaline Phosphatase Troponin I 0.1380 H* Total Protein Albumin Globulin Albumin/Globulin Ratio Free PSA 2.8 % Free PSA Not calculated Total PSA 12.7 H 06/11/17 06/11/17 06/11/17 16:56 16:56 23:54 WBC RBC Hgb Hct MCV MCH MCHC RDW Plt Count MPV Neut % (Auto) Lymph % (Auto) [place] % (Auto) Eos % (Auto) Baso % (Auto) Neut # (Auto) Lymph # (Auto) [place] # (Auto) Eos # (Auto) Baso # (Auto) PT 13.0 H INR 1.2 APTT 31 40 H D Sodium 134 Potassium 4.0 Chloride 101 Carbon Dioxide 26 Anion Gap 11 BUN 16 Creatinine 1.0 Est GFR ( Amer) > 60 Est GFR (Non-Af Amer) > 60 Random Glucose 105 Calcium 8.0 L Phosphorus 3.7 Magnesium 2.0 Total Bilirubin 0.7 AST 24 ALT 23 Alkaline Phosphatase 73 Troponin I Total Protein 6.6 Albumin 3.5 Globulin 3.0 Albumin/Globulin Ratio 1.2 Free PSA % Free PSA Total PSA 06/12/17 06/12/17 06/12/17 07:04 07:04 07:04 WBC 4.9 RBC 3.90 L Hgb 12.4 Hct 36.1 MCV 92.4 MCH 31.8 H MCHC 34.4 RDW 14.8 H Plt Count 213 MPV 7.2 Neut % (Auto) 59.4 Lymph % (Auto) 23.3 [place] % (Auto) 12.3 H Eos % (Auto) 4.2 H Baso % (Auto) 0.8 Neut # (Auto) 2.9 Lymph # (Auto) 1.1 [place] # (Auto) 0.6 Eos # (Auto) 0.2 Baso # (Auto) 0.0 PT INR APTT 55 H D Sodium 132 Potassium 3.9 Chloride 105 Carbon Dioxide 22 Anion Gap 9 L BUN 13 Creatinine 0.9 Est GFR ( Amer) > 60 Est GFR (Non-Af Amer) > 60 Random Glucose 98 Calcium 8.2 L Phosphorus 3.5 Magnesium 1.9 Total Bilirubin 0.6 AST 22 ALT 20 L Alkaline Phosphatase 74 Troponin I Total Protein 6.2 L Albumin 3.2 L Globulin 3.0 Albumin/Globulin Ratio 1.1 Free PSA % Free PSA Total PSA - EKG Data EKG Interpreted by: Myself EKG shows normal: Sinus rhythm (nsr, no ischemic changes) Assessment & Plan - Assessment and Plan (Free Text) Assessment: 1. 71 nidia old man, with a history of PAF, and recent pulmonary embolism. Asymptomatic non stemi. Normal ECg and echo wall motion. Troponin can rise in the setting of PE as well, but usually not to this degree unless massive PE, of whcih this pt clearly does not have. Before recommending cath, I will review previous cardiac work up, including recent stress test and prior cath (if indeed done).
--- NOTE | 2017-06-12 09:54 | CP.PCM.PN ---
Subjective - Date & Time of Evaluation Date of Evaluation: 06/12/17 Time of Evaluation: 08:55 - Subjective Subjective: Vascular surgery progress note for Dr. Osmel Collier, PGY-1 Pt S & E at bedside. Pt without any complaints. Needs to staying hospital for cardiac work up. Objective - Vital Signs/Intake and Output Vital Signs (last 24 hours): Temp Pulse Resp BP Pulse Ox 98.1 F 87 12 128/92 H 95 06/12/17 08:00 06/12/17 09:00 06/12/17 09:00 06/12/17 08:59 06/12/17 09:00 Intake and Output: 06/12/17 06/12/17 06:59 18:59 Intake Total 1700.1 339.9 Output Total 820 0 Balance 880.1 339.9 - Medications Medications: Current Medications Apixaban (Eliquis) 5 mg PO BID [facility] Last Admin: 06/11/17 10:01 Dose: 5 mg Aspirin (Aspirin Chewable) 81 mg PO DAILY [facility] Aspirin (Ecotrin) 325 mg PO DAILY [facility] Sodium Chloride (Sodium Chloride 0.9%) 1,000 mls @ 100 mls/hr IV .Q10H [facility] Last Admin: 06/11/17 23:45 Dose: 100 mls/hr Heparin Sodium/Sodium Chloride (Heparin 96323 Units/250ml 1/2 Normal Saline) 25 ,000 units in 250 mls @ 11.376 mls/hr IV .[id number] PRN; Protocol; 12 UNITS/KG/HR PRN Reason: PROTOCOL Last Titration: 06/12/17 01:03 Dose: 14 units/kg/hr, 13.272 mls/hr Rosuvastatin Calcium (Crestor) 5 mg PO HS [facility]AR[facility]MA Rosuvastatin Calcium (Crestor) 10 mg PO HS KARISHMA Simethicone (Mylicon Chew Tab) 80 mg PO Q8H PRN PRN Reason: GI distress Last Admin: 06/09/17 22:52 Dose: 80 mg Tamsulosin HCl (Flomax) 0.4 mg PO DAILY [facility] Last Admin: 06/12/17 09:14 Dose: 0.4 mg - Labs Labs: 06/12/17 07:04 06/12/17 07:04 PT 13.0 SECONDS (9.7-12.2) H 06/11/17 16:56 INR 1.2 06/11/17 16:56 APTT 55 SECONDS (21-34) H D 06/12/17 07:04 - Constitutional Appears: Non-toxic, In Acute Distress - Head Exam Head Exam: ATRAUMATIC, NORMAL INSPECTION, NORMOCEPHALIC - Eye Exam Eye Exam: EOMI, Normal appearance - ENT Exam ENT Exam: Mucous Membranes Moist, Normal Exam - Neck Exam Neck Exam: Full ROM, Normal Inspection - Respiratory Exam Respiratory Exam: NORMAL BREATHING PATTERN - Cardiovascular Exam Cardiovascular Exam: REGULAR RHYTHM, +S1, +S2 - Extremities Exam Extremities Exam: Normal Inspection - Neurological Exam Neurological Exam: Alert, Awake, CN II-XII Intact, Oriented x3 - Psychiatric Exam Psychiatric exam: Normal Affect, Normal Mood - Skin Skin Exam: Dry, Intact, Normal Color, Warm Assessment and Plan - Assessment and Plan (Free Text) Assessment: 71M s/p filter to ivc. venogram. angiojet thrombolysis if right common femoral and iliac vein. POD#3; elevated trops- needs cardiac work up Plan: Spoke with medical service- accepted patient to [facility] service Change of attending order in Pt to complete cardiac work up OOBTC PT/OT Further recommendations as per new primary team No further vascular surgery intervention needed MANAN attending Amira, PGY-1
[2017-06-12] MEDS ORDERED: Aspirin 325 mg EC Tablets PO SCH (10:00)
[2017-06-12] MEDS: Sodium Chloride 0.9% 1,000 ML IV SCH (10:23)
[2017-06-12 10:56] LABS: HDL CHOLESTEROL 32 mg/dL (30-70)
[2017-06-12 11:06] LABS: LDL CHOLESTEROL 140 mg/dL (0-129)
[2017-06-12] MEDS ORDERED: Pantoprazole 40 mg EC Tab PO SCH (11:15)
[2017-06-12] MEDS: Heparin25000 units/250ml 1/2NS 25,000 UNITS/250 ML BAG IV PRN (15:25)
--- NOTE | 2017-06-12 17:23 | RAD ---
HISTORY: baseline cxr COMPARISON: 09/12/2015 chest x-ray. Angio chest abdomen study report 06/02/2015 noted FINDINGS: LUNGS: Prior CT referenced small pulmonary nodules are not evident on this exam. No consolidations seen. PLEURA: No significant pleural effusion identified, no pneumothorax apparent. CARDIOVASCULAR: Mild cardiomegaly. Minimal pulmonary venous congestion probable. OSSEOUS STRUCTURES: Mild thoracic spondylosis. Bilateral shoulder arthrosis. VISUALIZED UPPER ABDOMEN: Normal. OTHER FINDINGS: Cardiac monitoring device noted IMPRESSION: No consolidation. Cardiomegaly. Possible concomitant minimal pulmonary venous congestion
[2017-06-13 00:41] VITALS: O2SAT 94
[2017-06-13 01:56] VITALS: BP 129/74; PULSE 70; RESP 19; TEMP 98.7
--- NOTE | 2017-06-13 23:19 | CARD ---
APPROVED REPORT EKG Measurement Heart [id number] 154P65 [id number] <Conclusion> Normal sinus rhythm Left axis deviation Prolonged QT Abnormal ECG
--- NOTE | 2017-06-13 23:25 | CARD ---
APPROVED REPORT EKG Measurement Heart [id number] 160P64 [id number] <Conclusion> Normal sinus rhythm Left axis deviation Nonspecific ST abnormality Abnormal ECG
--- NOTE | 2017-06-16 21:56 | CON ---
DATE: 06/11/2017 Urology consultation requested by Dr. Rice. Urology consultation filled by Dr. Jenny Shaikh. REASON FOR CONSULTATION: Hematuria. HISTORY: The patient is a 71-year-old male with hematuria. The patient is in otherwise fair health. The patient had undergone vascular surgery via the groin. The patient subsequently developed hematuria. The patient appears he has had previous episodes of hematuria. The patient voids good urinary stream and good control. The patient has history of a markedly enlarged prostate. The patient has history of elevated serum PSA. The patient also has significant urologic history including urolithiasis. The patient has undergone previous laser lithotripsy. Mr. Simeon reports that he voids with good urinary stream and good control. He has nocturia x3. The patient also was admitted to the hospital following vascular surgery for possible cardiac event. Mr. Simeon reports that he has good appetite. He is feeling comfortable without chest pain or abdominal pain. PHYSICAL EXAMINATION: GENERAL: Patient is a well-developed, well-nourished male appearing his stated age. ABDOMEN: Soft, nontender, nondistended. No mass or organomegaly. BACK: No CVA tenderness. : I observed the patient voiding. The patient has fair urinary stream. Urine is clear and yellow. GENITALIA: Normal uncircumcised male. Scrotal contents without inflammation. IMPRESSION: History of hematuria and now resolved, history of urolithiasis, history of benign prostatic hypertrophy, history of elevated serum PSA. The patient has cardiovascular disease. The patient has coronary artery disease as well as peripheral vascular disease. PLAN/RECOMMENDATIONS: Monitor clinical course. The patient will require further evaluation regarding hematuria. The patient does not want to have further evaluation at this time. I recommend obtaining serum PSA, also urine culture and cytology. Further therapy to follow according to the patient's clinical course. Thank you for recommending the patient in urology consultation. Jenny Shaikh MD cc: John Rice Jr., MD
== END 2017-06-13 01:45 | disposition short-term general hospital (02) | DRG 270 ==
LOC: C.SDS 08:39 → C.9S 15:26 → OBSVTOIN 15:26 → C.9I 20:55
PROVIDERS: ADMIT Internal Medicine Nephrology; ATTEND Internal Medicine Nephrology
PROC: 04CH3ZZ Extirpation of Matter from Right External Iliac Artery, Percutaneous Approach (ICD-10-PCS; 2017-06-09)
PROC: 047K3ZZ Dilation of Right Femoral Artery, Percutaneous Approach (ICD-10-PCS; 2017-06-09)
PROC: 02HV3DZ Insertion of Intraluminal Device into Superior Vena Cava, Percutaneous Approach (ICD-10-PCS; 2017-06-09)
PROC: 04CK3ZZ Extirpation of Matter from Right Femoral Artery, Percutaneous Approach (ICD-10-PCS; principal; 2017-06-09 10:30)
DX: I82.411 Acute embolism and thrombosis of right femoral vein (principal); I26.99 Other pulmonary embolism without acute cor pulmonale; I21.A1 Myocardial infarction type 2; I74.5 Embolism and thrombosis of iliac artery; F17.210 Nicotine dependence, cigarettes, uncomplicated; I16.0 Hypertensive urgency; R33.8 Other retention of urine; Z87.442 Personal history of urinary calculi; I25.10 Atherosclerotic heart disease of native coronary artery without angina pectoris; I48.0 Paroxysmal atrial fibrillation; N32.89 Other specified disorders of bladder; N99.89 Other postprocedural complications and disorders of genitourinary system; Y83.8 Other surgical procedures as the cause of abnormal reaction of the patient, or of later complication, without mention of misadventure at the time of the procedure; R31.9 Hematuria, unspecified; N40.0 Benign prostatic hyperplasia without lower urinary tract symptoms

== ENCOUNTER 2017-09-26 15:01 | Emergency (ER) | payer MEDICARE, MEDICAID ==
[2017-09-26 15:02] VITALS: BMI 52.3
[2017-09-26 15:25] VITALS: BP 135/88; PULSE 86; RESP 16; TEMP 98; O2SAT 98
[2017-09-26] MEDS ORDERED: Lidocaine 1% Inj (20ml) INFIL ONE (15:53)
[2017-09-26] MEDS ORDERED: Bacitracin 500 Units/gm Oint Foilpak UD TOP ONE (15:54)
[2017-09-26] MEDS ORDERED: Tdap Vaccine 0.5 ml Vial (10-64 yrs) IM ONE ×2 (15:54→16:11)
[2017-09-26] MEDS ORDERED: Bacitracin 500 Units/gm Oint Foilpak UD ONE (16:10)
[2017-09-26] MEDS ORDERED: Lidocaine Hydrochloride 10 ML INJ ONE (16:10)
--- NOTE | 2017-09-26 16:10 | C.PDOC ---
History Of Present Illness 72 y/o male presents with laceration to left index finger, caused by dropping heavy metallic object on finger. occurred just prior to arrival. pt has hx blood clots, on Eliquis. last tdap unknown. pt right hand dominant. no numbness or tingling. Time Seen by Provider: 09/26/17 15:41 Chief Complaint (Nursing): Abnormal Skin Integrity History Per: Patient History/Exam Limitations: no limitations Onset/Duration Of Symptoms: Hrs (1) Current Symptoms Are (Timing): Still Present Location Of Injury: Left: Hand Quality Of Symptoms: Painful Severity: Moderate Past Medical History Reviewed: Historical Data, Nursing Documentation, Vital Signs Vital Signs: Last Vital Signs Temp 98 F 09/26/17 15:19 Pulse 86 09/26/17 15:19 Resp 16 09/26/17 15:19 BP 135/88 09/26/17 15:19 Pulse Ox 98 09/28/17 12:23 - Medical History PMH: Atrial Fibrillation, Benign Prostatic Hyperplasia, Cardia Arrhythmia ( atrial fib), Kidney Stones Surgical History: Appendectomy - [facility] Procedures DILATION OF RIGHT FEMORAL VEIN, PERCUTANEOUS APPROACH (06/09/17) EXTIRPATION OF MATTER FROM R EXT ILIAC VEIN, PERC APPROACH (06/09/17) EXTIRPATION OF MATTER FROM RIGHT FEMORAL VEIN, PERC APPROACH (06/09/17) INSERTION OF INTRALUM DEV INTO SUP VENA CAVA, PERC APPROACH (06/09/17) Family History: States: Unknown Family Hx - Social History Hx Tobacco Use: No Hx Alcohol Use: No Hx Substance Use: No - Immunization History Hx Tetanus Toxoid Vaccination: No Hx Influenza Vaccination: No Hx Pneumococcal Vaccination: No Review Of Systems Constitutional: Negative for: Fever, Chills Cardiovascular: Negative for: Chest Pain Musculoskeletal: Positive for: Hand Pain (left). Negative for: Neck Pain Skin: Positive for: Other (laceration left index finger) Neurological: Negative for: Weakness, Numbness Physical Exam - Physical Exam Appears: Non-toxic, No Acute Distress Skin: Warm, Dry, Other (laceration approx 1 cm, irregular to palmar surface left index finger) Extremity: Other (laceration to left index finger with tenderness, mild tenderness to left thumb, from all digits, rest of left upper ext non tender with from. ) Extremity: Right: Atraumatic Pulses: Left Radial: Normal, Right Radial: Normal Neurological/Psych: Oriented x3, Normal Speech, Normal Cognition, Normal Motor, Normal Sensation ED Course And Treatment O2 Sat by Pulse Oximetry: 98 - Other Rad left fingers X-Ray: Viewed By Me, Read By Radiologist Interpretation: Small bony density seen at the base of the distal tuft distal phalanx left thumb ; these findings could represent a normal variant however all posttraumatic mineralization or a tiny avulsion injury not excluded. Clinical correlation recommended. No evidence of acute displaced fracture nor dislocation 2nd digit however there is mild diffuse soft tissue swelling 2nd digit. . Soft tissue swelling. If symptoms persist or occult fracture suspected clinically recommend repeat radiographs in 5-10 days as most fractures should become radiographically evident in No evidence of acute displaced fracture nor dislocation. See above discussion for additional incidental findings. Clinical correlation recommended. Laceration - Laceration Repair 1=left index finger Wound Length (In cm): 1 Description Of Wound: Clean, Irregular Wound Cleansed With: Betadine, Sterile Saline Anesthesia: Lidocaine 1% Wound Examination: Irrigated With Saline, No FB With Wound Exploration, No Tendon Injury With Wound Exploration Wound Closure: Suture (#3) Suture Technique And Material Used: Interrupted (4-0 ethilon) Wound Complexity: Simple Medical Decision Making Medical Decision Making: crush injury to left index finger- wound care, xray, tdap booster Disposition Counseled Patient/Family Regarding: Studies Performed, Diagnosis, Need For Followup, Rx Given - Disposition Referrals: Dion Caceres MD [Medical Doctor] - Disposition: HOME/ ROUTINE Disposition Time: 17:38 Condition: IMPROVED Additional Instructions: Please keep finger clean and dry; change dressing tomorrow, wash gently with soap and water, then apply bacitracin, and re-dress with bandage. Return to ER in 2 days for wound check. Tylenol for pain. Take antibiotics as prescribed. Suture removal in 10 days. Follow up with hand surgeon for thumb. Wear thumb splint for comfort. Prescriptions: Cephalexin [cephalexin] 500 mg PO Q6 #28 cap Instructions: Laceration Repair With Stitches (DC) Forms: [facility] (Spanish), General Discharge Instructions - Clinical Impression Clinical Impression: Laceration of left index finger, Injury of thumb, left
--- NOTE | 2017-09-26 16:48 | RAD ---
PROCEDURE: Left index finger radiographs HISTORY: Evaluate for fracture. Proximal phalanx crush injury. COMPARISON: No prior study available comparison TECHNIQUE: PA radiograph of the left hand, as well as spot oblique and lateral images of index finger were obtained. FINDINGS: Small bony density seen at the base of the distal tuft distal phalanx left thumb ; these findings could represent a normal variant however all posttraumatic mineralization or a tiny avulsion injury not excluded. Clinical correlation recommended No definitive evidence of acute displaced fracture nor dislocation 2nd digit however there is mild surrounding soft tissue swelling 2nd digit. There is foreshortened left 4th metacarpal with deformity of the metacarpal head. Rule out congenital/developmental or posttraumatic sequela. Clinical correlation recommended. Questionable old posttraumatic sequela distal tuft distal phalanx 3rd finger. Note also made of a small well-circumscribed benign-appearing cystic focus within the radial distal aspect of the proximal phalanx 3rd digit. This timeframe. JOINTS: Mild multi articular degenerative osteoarthritis. Changes most pronounced at the 1st and to a lesser degree 2nd and 3rd MCP joints. . Degenerative changes also noted at the PIP joint 3rd finger. SOFT TISSUES: As above. OTHER FINDINGS: No radiopaque foreign bodies IMPRESSION: Small bony density seen at the base of the distal tuft distal phalanx left thumb ; these findings could represent a normal variant however all posttraumatic mineralization or a tiny avulsion injury not excluded. Clinical correlation recommended. No evidence of acute displaced fracture nor dislocation 2nd digit however there is mild diffuse soft tissue swelling 2nd digit. . Soft tissue swelling. If symptoms persist or occult fracture suspected clinically recommend repeat radiographs in 5-10 days as most fractures should become radiographically evident in No evidence of acute displaced fracture nor dislocation. See above discussion for additional incidental findings. Clinical correlation recommended.
== END 2017-09-26 17:56 | disposition home or self-care (01) ==
LOC: C.ER 15:01
DX: S61.211A Laceration without foreign body of left index finger without damage to nail, initial encounter (principal); S69.92XA Unspecified injury of left wrist, hand and finger(s), initial encounter; W22.8XXA Striking against or struck by other objects, initial encounter

== ENCOUNTER 2017-09-28 11:22 | Emergency (ER) | payer MEDICARE, MEDICAID ==
[2017-09-28 11:22] VITALS: BMI 52.3
[2017-09-28 11:25] VITALS: BP 128/87; PULSE 87; RESP 18; TEMP 97.6; O2SAT 97
[2017-09-28] MEDS ORDERED: Bacitracin 500 Units/gm Oint Foilpak UD ONE (11:39)
--- NOTE | 2017-09-28 11:42 | C.PDOC ---
History Of Present Illness Patient came to ED for wound check. Sutures were placed on 09/26/17 to the left index finger. Patient has no complains at present time. Time Seen by Provider: 09/28/17 11:28 Chief Complaint (Nursing): Wound Check Past Medical History Reviewed: Historical Data, Nursing Documentation, Vital Signs Vital Signs: Last Vital Signs Temp 97.6 F 09/28/17 11:23 Pulse 87 09/28/17 11:23 Resp 18 09/28/17 11:23 BP 128/87 09/28/17 11:23 Pulse Ox 97 09/28/17 11:42 - Medical History PMH: Atrial Fibrillation, Benign Prostatic Hyperplasia, Cardia Arrhythmia ( atrial fib), Kidney Stones Surgical History: Appendectomy - [facility] Procedures DILATION OF RIGHT FEMORAL VEIN, PERCUTANEOUS APPROACH (06/09/17) EXTIRPATION OF MATTER FROM R EXT ILIAC VEIN, PERC APPROACH (06/09/17) EXTIRPATION OF MATTER FROM RIGHT FEMORAL VEIN, PERC APPROACH (06/09/17) INSERTION OF INTRALUM DEV INTO SUP VENA CAVA, PERC APPROACH (06/09/17) Family History: States: Unknown Family Hx - Social History Hx Tobacco Use: No Hx Alcohol Use: No Hx Substance Use: No - Immunization History Hx Tetanus Toxoid Vaccination: No Hx Influenza Vaccination: No Hx Pneumococcal Vaccination: No Review Of Systems Except As Marked, All Systems Reviewed And Found Negative. Physical Exam - Physical Exam Appears: Well, Non-toxic, No Acute Distress Skin: Normal Color, Warm, No Rash Eye(s): bilateral: Normal Inspection Extremity: Other (left index finfer distal phalanx lateral with healing laceration, no erythema/swelling/warmth/discharge. FROM in the finger. ) Neurological/Psych: Oriented x3, Normal Speech, Normal Cognition ED Course And Treatment O2 Sat by Pulse Oximetry: 97 Progress Note: Dressing was changes, Bacitracin ointment was applied. Patient was instructed to follow up with Hand specialist as instructed, suture removal in 8-9 days. Disposition - Disposition Disposition: HOME/ ROUTINE Disposition Time: 11:41 Condition: STABLE Additional Instructions: Return to ED for suture removal as previously instructed. Prescriptions: Bacitracin OINT 1 applic TP TID #45 g Instructions: Wound Care (DC) Forms: [employer] (Brazilian) - Clinical Impression Clinical Impression: Visit for wound check
== END 2017-09-28 11:54 | disposition home or self-care (01) ==
LOC: C.ER 11:22
DX: S61.211D Laceration without foreign body of left index finger without damage to nail, subsequent encounter (principal); I48.91 Unspecified atrial fibrillation; N40.0 Benign prostatic hyperplasia without lower urinary tract symptoms

== ENCOUNTER 2017-10-04 12:56 | Emergency (ER) | payer MEDICARE, MEDICAID ==
[2017-10-04 12:56] VITALS: BMI 52.3
[2017-10-04 13:29] VITALS: BP 119/76; PULSE 79; RESP 20; TEMP 98.5; O2SAT 97
--- NOTE | 2017-10-04 13:59 | C.PDOC ---
History Of Present Illness Pt is a 72 yr old male who presents to the ED for suture removal. Pt had stitches placed 1 week ago. No fever. Wound is healing well. / Time Seen by Provider: 10/04/17 13:33 Chief Complaint (Nursing): Abnormal Skin Integrity History Per: Patient History/Exam Limitations: no limitations Past Medical History Reviewed: Historical Data, Nursing Documentation, Vital Signs Vital Signs: Last Vital Signs Temp 98.5 F 10/04/17 13:26 Pulse 79 10/04/17 13:26 Resp 20 10/04/17 13:26 BP 119/76 10/04/17 13:26 Pulse Ox 97 10/04/17 13:59 - Medical History PMH: Atrial Fibrillation, Benign Prostatic Hyperplasia, Cardia Arrhythmia (s/p ablation), Kidney Stones, Chronic Kidney Disease Surgical History: Appendectomy - [facility] Procedures DILATION OF RIGHT FEMORAL VEIN, PERCUTANEOUS APPROACH (06/09/17) EXTIRPATION OF MATTER FROM R EXT ILIAC VEIN, PERC APPROACH (06/09/17) EXTIRPATION OF MATTER FROM RIGHT FEMORAL VEIN, PERC APPROACH (06/09/17) INSERTION OF INTRALUM DEV INTO SUP VENA CAVA, PERC APPROACH (06/09/17) Family History: States: Unknown Family Hx - Social History Hx Tobacco Use: No Hx Alcohol Use: No Hx Substance Use: No - Immunization History Hx Tetanus Toxoid Vaccination: Yes Hx Influenza Vaccination: No Hx Pneumococcal Vaccination: No Review Of Systems Except As Marked, All Systems Reviewed And Found Negative. Constitutional: Negative for: Fever Skin: Positive for: Other (recent laceration repair). Negative for: Rash, Lesions Physical Exam - Physical Exam Appears: Well, Non-toxic, No Acute Distress Extremity: Other (left index finger laceration site healing well; sutures in place; no evidence of infection) ED Course And Treatment O2 Sat by Pulse Oximetry: 97 Medical Decision Making Medical Decision Making: Initial Impression: Recent laceration repair--here for suture removal Initial Plan: Remove sutures Procedure Note: All 3 sutures were removed successfully using an 11 blade scalpel. No complication. Steristrips and finger splint placed. / Disposition Counseled Patient/Family Regarding: Diagnosis, Need For Followup - Disposition Referrals: Rosa Valentino MD [Staff Provider] - Disposition: HOME/ ROUTINE Disposition Time: 13:57 Condition: IMPROVED Additional Instructions: Mr. Simeon, thank you for letting us take care of you today. Return to the ER if your symptoms worsen, or if any problems. Follow up with the Hand Doctor (Dr. Valentino) next week for a re-evaluation. The phone number is listed below to make an appointment. Instructions: Stitches Removal, Wound Care (DC) Forms: [employer] (Greek) Print Language: GERMAN - POA Present On Arrival: None - Clinical Impression Clinical Impression: Visit for suture removal
== END 2017-10-04 14:05 | disposition home or self-care (01) ==
LOC: C.ER 12:56
DX: Z48.02 Encounter for removal of sutures (principal)

== ENCOUNTER 2018-05-11 09:52 | Outpatient (CLI) | payer MEDICARE, MEDICAID | END 2018-05-11 09:53 | disposition home or self-care (01) | LOC: C.RADH 09:52 | DX: C61 Malignant neoplasm of prostate (principal) ==